=== PATIENT | male | born 1935 | race Caucasian/White ===

== ENCOUNTER 2016-06-12 09:18 | Outpatient (CLI) | payer MEDICARE, BC | END 2016-06-12 09:19 | disposition home or self-care (01) | DX: C61 Malignant neoplasm of prostate (principal); Z92.3 Personal history of irradiation; N41.1 Chronic prostatitis; R39.15 Urgency of urination ==

== ENCOUNTER 2017-02-24 10:19 | Outpatient (CLI) | payer MEDICARE, BC ==
--- NOTE | 2017-02-24 11:25 | XRAY Report ---
TWO VIEW CHEST: 02/24/2017 CLINICAL INDICATION: Cough. COMPARISON: 10/22/2014. FINDINGS: Frontal and lateral views of the chest demonstrate a normal cardiac silhouette. Ectasia of the thoracic aorta is stable. No focal consolidation, effusion, or pneumothorax is present. The lung s are hyperinflated, suggestive of COPD. IMPRESSION: HYPERINFLATION, BUT NO EVIDENCE OF ACUTE CARDIOPULMONARY DISEASE. JOB #: [id number] EXT JOB #:[id number]
== END 2017-02-24 10:20 | disposition home or self-care (01) ==
LOC: DI 10:19
PROVIDERS: ATTEND Internal Medicine
DX: R05 Cough (principal)
CPT/HCPCS: 71020

== ENCOUNTER 2017-10-13 16:24 | Outpatient (CLI) | payer MEDICARE, BC ==
--- NOTE | 2017-10-14 22:02 | XRAY Report ---
EXAM: RIGHT HIP AND PELVIS RADIOGRAPHY EXAM DATE: 10/13/2017 04:40 PM. HISTORY: Right hip pain. COMPARISONS: None. TECHNIQUE: 1 view of the pelvis and 1 view of the hip. FINDINGS: Bones: Normal. No fracture or bone lesion. Joints: Left and right hip joint spaces are narrowed. 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 Soft Tissues: Prostate seed implants. IMPRESSION: 1. Left and right hip joint spaces are symmetrically narrowed with marginal arthrosis. [facility] Referring Provider Line: [phone] SITE ID: [id number]
== END 2017-10-13 16:25 | disposition home or self-care (01) ==
LOC: DI 16:24
PROVIDERS: ATTEND Internal Medicine
DX: M25.551 Pain in right hip (principal)

== ENCOUNTER 2017-11-30 08:47 | Day surgery (SDC) | payer MEDICARE, BC ==
[~2017-11-30 08:47] MED LIST: BRIMONIDINE 0.2% OPHTH DROPS 5 ML ONE; BSS/LIDOCAINE/EPINEPHRINE 1 ML SYRINGE ONE; CYCLOPENTOLATE 1% OPHTH DROPS 2 ML ONE; EPINEPHrine 1 MG/ML AMP ONE; KETOROLAC 0.45% OPHTH DROPS ONE; PHENYLEPHRINE 2.5% OPHTH 2 ML DROPS ONE; PROPARACAINE 0.5% OPHTH DROPS 15 ML ONE; TIMOLOL 0.5% OPHTH DROPS ONE; TRIAMCIN/MOXIFLOX OPHTHALMIC 0.6 ML VIAL IO ONE; VANCOMYCIN OPHTHALMI 8MG/0.8ML 8 MG/0.8 ML SYRINGE IO ONE
[2017-11-30] MEDS ORDERED: PROPARACAINE 0.5% OPHTH DROPS 15 ML LEFTEYE ONE ×2 (09:35→10:17)
[2017-11-30] MEDS ORDERED: LACTATED RINGERS 500 ML IV ONE ×2 (09:35→10:34)
[2017-11-30] MEDS ORDERED: KETOROLAC 0.45% OPHTH DROPS LEFTEYE ONE (09:35)
[2017-11-30] MEDS ORDERED: CYCLOPENTOLATE 1% OPHTH DROPS 2 ML LEFTEYE ONE (09:35)
[2017-11-30] MEDS ORDERED: PHENYLEPHRINE 2.5% OPHTH 2 ML DROPS LEFTEYE ONE (09:35)
[2017-11-30] MEDS ORDERED: TRIAMCIN/MOXIFLOX/VANCO 1 ML VIAL IO ONE (10:17)
[2017-11-30] MEDS ORDERED: BSS/LIDOCAINE/EPINEPHRINE 1 ML SYRINGE IO ONE (10:17)
[2017-11-30] MEDS ORDERED: BRIMONIDINE 0.2% OPHTH DROPS 5 ML OPTH ONE (10:17)
[2017-11-30] MEDS ORDERED: TIMOLOL 0.5% OPHTH DROPS OPTH ONE (10:17)
[2017-11-30] MEDS ORDERED: EPINEPHrine 1 MG/ML AMP IVP ONE (10:17)
[2017-11-30] MEDS ORDERED: CHONDR SULF/HYALURONATE SYRINGE IO ONE (10:17)
[2017-11-30] MEDS ORDERED: MIDAZOLAM 2 MG/2 ML VIAL IVP ONE (10:30)
[2017-11-30 11:08] VITALS: BP 144/82
--- NOTE | 2017-11-30 12:08 | OPERATIVE REPORT ---
DATE OF SERVICE: 11/30/2017 Physician: Demetris Bermeo MD PREOPERATIVE DIAGNOSIS: Visually significant cataract, left eye. This was his first cataract surgery. POSTOPERATIVE DIAGNOSIS: Visually significant cataract, left eye. This was his first cataract surgery. NAME OF PROCEDURE: Phacoemulsification with posterior chamber intraocular lens implant, left eye. SURGEON: Demetris Bermeo MD ANESTHESIA: Monitored anesthesia care. COMPLICATIONS: None. OPERATIVE INDICATIONS: This is an 82-year-old man with progressive vision loss in the left eye due to 2+ nuclear sclerotic vacuolar, 1+ posterior subcapsular cataract. Best corrected visual acuity was 20/70, with glare to 20/100, in the left eye. Indications for surgery are overall decrease in vision, difficulty seeing words on a computer screen, difficulty reading, difficulty seeing words, closed caption or game scores on TV, difficulty driving in low light or at night, difficulty driving at night because of head lights from other vehicles, and difficulty with glare or bright lights in any situation. He was consented at length concerning risks and benefits of cataract surgery. Afterwards he expressed a desire to proceed with surgery. OPERATIVE PROCEDURE: The patient was taken to OR #3 and placed under monitored anesthesia care. A surgical timeout was conducted confirming correct patient, correct procedure, and correct surgical site. He was given topical anesthesia, and prepped and draped in usual sterile fashion. The eye was entered at the 6 and 3 o'clock positions. Intracameral Shugarcaine was injected into the anterior chamber, followed by Viscoat. A continuous-tear curvilinear capsulorrhexis was performed. The nucleus was hydrodissected and phacoemulsified. The cortex was evacuated using automated infusion and aspiration. Provisc was injected in the capsular bag, and a 15.5 diopter intraocular lens was inserted in the bag. Approximately 0.9 mL of a mixture of triamcinolone, moxifloxacin and vancomycin was injected subconjunctivally in the superior quadrant for infection and inflammation prophylaxis. I and A was used to evacuate the viscoelastic material. The eye was inflated to physiologic pressure using a balanced salt solution, and found to be watertight. The patient was taken from the operating room in good condition, given postop instructions TD: 11/30/2017 10:41
== END 2017-11-30 08:48 | disposition home or self-care (01) ==
LOC: SDS 08:47
PROVIDERS: ATTEND Ophthalmology
PROC: 08RK3JZ Replacement of Left Lens with Synthetic Substitute, Percutaneous Approach (ICD-10-PCS; principal; 2017-11-30 10:00)
DX: H25.812 Combined forms of age-related cataract, left eye (principal); I10 Essential (primary) hypertension; G47.33 Obstructive sleep apnea (adult) (pediatric); Z79.82 Long term (current) use of aspirin
CPT/HCPCS: 66984; A9270; V2632

== ENCOUNTER 2017-12-26 13:06 | Emergency (ER) | payer MEDICARE, BC ==
--- NOTE | 2017-12-26 15:20 | ED Physician Documentation ---
PD HPI ALTERED MENTAL STATUS - Stated complaint Stated Complaint: HIGH BP - Chief complaint Chief Complaint: Cardiac - History obtained from History obtained from: Patient - History of Present Illness Timing - onset: How many days ago (several days to a week of having intermittent lightheaded feeling. Noted his BP was elevated on several readings , in 150-170 range. Had been on Norvasc up until 3 months ago and was to cut in half due to BP doing so well, but he just stopped it. Was doing okay. Now with current symptoms. He says he does not feel lightheaded all the time, just for minutes at a time. No vertigo and is not positional.) Timing - duration: Days Timing - details: Intermittant Quality / character: Other (lightheaded and feels slightly foggy thinking for few minutes at a time. No focal weakness.) Associated symptoms: No: Fever, Headache, Dyspnea, Cough Contributing factors: Recent med change (stopped BP med 3 months ago in collaboration with PMD (was to cut it in half but stopped it instead).). No: Anticoagulated, Diabetic, New medication, Recent illness Basline status: Alert and oriented X 3, Ambulatory Similar symptoms before: Has not had sx before Recently seen: Not recently seen Review of Systems Constitutional: denies: Fever Nose: denies: Rhinorrhea / runny nose, Congestion Throat: denies: Sore throat Cardiac: denies: Chest pain / pressure, Palpitations, Pedal edema, Calf pain Respiratory: denies: Dyspnea, Cough, Wheezing GI: denies: Abdominal Pain, Nausea, Vomiting : denies: Dysuria Musculoskeletal: denies: Neck pain, Back pain Neurologic: reports: Near syncope (lightheaded but not to point of feeling faint.). denies: Focal weakness, Numbness, Syncope, Headache, Head injury PD PAST MEDICAL HISTORY - Past Medical History Cardiovascular: Hypertension, Coronary artery disease, Arrhythmia Respiratory: Sleep apnea, Other Endocrine/Autoimmune: None GI: GERD, Hepatitis : Incontinence HEENT: Chronic vision loss, Chronic hearing loss, Other Psych: Depression Musculoskeletal: None Derm: Herpes zoster, Other - Past Surgical History Past Surgical History: Yes General: Colonoscopy Neuro: DIRECTOR OF MARKETING OPERATIONS shunt HEENT: Tonsil/Adenoidectomy - Present Medications Home Medications: Ambulatory Orders Medication Instructions Recorded Confirmed Sertraline [Zoloft] 50 mg PO DAILY 07/05/13 11/30/17 Aspirin EC [Ecotrin] 325 mg PO DAILY 11/30/17 11/30/17 Cyanocobalamin (Vitamin B-12) 500 mcg PO DAILY 11/30/17 11/30/17 [Vitamin B-12] Desvenlafaxine Succinate [Pristiq 25 mg PO DAILY 11/30/17 11/30/17 ER] Folic Acid 0.8 mg PO DAILY 11/30/17 11/30/17 Ibuprofen [Ibu] 600 mg PO DAILY 11/30/17 11/30/17 Multivitamin/Iron/Folic Acid 1 each PO DAILY 11/30/17 11/30/17 [Centrum Adults Tablet] amLODIPine [Norvasc] 5 mg PO DAILY 11/30/17 11/30/17 Amlodipine Besylate 5 mg PO DAILY #30 tablet 12/26/17 - Allergies Allergies/Adverse Reactions: Allergies Allergy/AdvReac Type Severity Reaction Status Date / Time venom-honey bee Allergy Severe Respiratory Verified 12/26/17 15:43 [bee venom (honey bee)] and swelling iodine Allergy Intermediate Hives Verified 12/26/17 15:43 ciprofloxacin [From Cipro] Allergy Mild Rash Verified 12/26/17 15:43 ciprofloxacin HCl * Allergy Mild Rash Verified 12/26/17 15:43 [From Cipro] DYLON Inhibitors Allergy cough Verified 12/26/17 15:43 Sulfa (Sulfonamide AdvReac Mild Nausea Verified 12/26/17 15:43 Antibiotics) yellow jackets Allergy Anaphylaxis Uncoded 11/30/17 09:40 - Social History Does the pt smoke?: No Smoking Status: Never smoker Does the pt drink ETOH?: No Does the pt have substance abuse?: No - Immunizations Immunizations are current?: Yes Immunizations: TDAP >10years/unknown - POLST Patient has POLST: No PD ED PE NORMAL - Vitals Vital signs reviewed: Yes - General General: Alert and oriented X 3, No acute distress, Well developed/nourished - HEENT HEENT: Pharynx benign - Neck Neck: Supple, no meningeal sign, No adenopathy, No JVD - Cardiac Cardiac: RRR (mild bradycardia), No murmur - Respiratory Respiratory: Clear bilaterally - Abdomen Abdomen: Normal bowel sounds, Soft, Non tender, Non distended - Back Back: No CVA TTP - Derm Derm: Normal color, Warm and dry - Extremities Extremities: No deformity, No tenderness to palpate, No edema, No calf tenderness / cord - Neuro Neuro: Alert and oriented X 3, No motor deficit, Normal speech Results - Vitals Vitals: Vital Signs - 24 hr 12/26/17 12/26/17 13:17 15:15 Temperature 36.4 C L Heart Rate 48 L Respiratory 18 Rate Blood Pressure 156/84 H Blood Pressure 153/101 H [Left] Blood Pressure 154/119 H [Right] O2 Saturation 100 Oxygen O2 Source Room air - EKG (time done) 14:00 Rate: Rate (enter#) (50) Rhythm: Sinus bradycardia [place]: Normal Intervals: Normal IN QRS: Normal Ischemia: Normal ST segments. No: ST elevation c/w ischemia, ST depression - Labs Labs: Laboratory Tests 12/26/17 12/26/17 12/26/17 15:30 15:30 15:30 WBC 7.2 RBC 4.70 Hgb 15.4 Hct 46.6 MCV 99.1 H MCH 32.9 H MCHC 33.2 RDW 14.1 Plt Count 175 MPV 10.0 Neut # (Auto) 4.1 Lymph # (Auto) 2.4 [place] # (Auto) 0.5 Eos # (Auto) 0.1 Baso # (Auto) 0.0 Absolute Nucleated RBC 0.01 Nucleated RBC % 0.1 Sodium 141 Potassium 4.0 Chloride 108 Carbon Dioxide 26 Anion Gap 7.0 BUN 21 H Creatinine 0.9 Estimated GFR (MDRD) 81 L Glucose 94 Calcium 8.9 Magnesium 2.2 Total Bilirubin 1.0 AST 34 ALT 23 Alkaline Phosphatase 84 B-Natriuretic Peptide 90 Total Protein 7.2 Albumin 4.1 Globulin 3.1 Albumin/Globulin Ratio 1.3 Lipase 33 PD MEDICAL DECISION MAKING - ED course Complexity details: reviewed results, considered differential (intermittent lightheaded episodes and had prior history of atrial flutter post op remotely. Consider Holter to ensure not intermittent dysrhythmia currently. BP elevated but not too high. Can just resume prior BP med (had been off it 3 months since BP was so good). ), d/w patient, d/w PMD (Dr. Pierson - to resume Norvasc 5 mg daily and she will arrange Holter. ) - Sepsis Event Vital Signs: Vital Signs - 24 hr 12/26/17 12/26/17 13:17 15:15 Temperature 36.4 C L Heart Rate 48 L Respiratory 18 Rate Blood Pressure 156/84 H Blood Pressure 153/101 H [Left] Blood Pressure 154/119 H [Right] O2 Saturation 100 Oxygen O2 Source Room air Departure - Departure Disposition: 01 Home, Self Care Clinical Impression: Light-headed feeling Hypertension Qualifiers: Hypertension type: unspecified Qualified Code(s): I10 - Essential (primary) hypertension Record reviewed to determine appropriate education?: Yes Instructions: ED HTN Established Follow-Up: Nicolasa Pierson MD [Primary Care Provider] - Prescriptions: Amlodipine Besylate 5 mg PO DAILY #30 tablet Comments: Continue usual medications. Resume the [facility]. Follow-up with Dr. Pierson. Discharge Date/Time: 12/26/17 17:30
[2017-12-26 15:55] VITALS: BP 154/119
[2017-12-26 16:01] LABS: BASOPHILS % (AUTO) 0.5 %; EOSINOPHILS # (AUTO) 0.1 10^3/uL (0.0-0.7); HGB - HEMOGLOBIN 15.4 g/dL (14.0-18.0); LYMPHOCYTES # (AUTO) 2.4 10^3/uL (1.5-3.5); LYMPHOCYTES % (AUTO) 33.4 %; MEAN CORPUSCULAR HEMOGLOBIN 32.9 pg (27.0-31.0); MEAN CORPUSCULAR HGB CONC 33.2 g/dL (32.0-36.0); MEAN CORPUSCULAR VOLUME 99.1 fL (80.0-94.0); MONOCYTES # (AUTO) 0.5 10^3/uL (0.0-1.0); MONOCYTES % (AUTO) 7.5 %; NEUTROPHILS # (AUTO) 4.1 10^3/uL (1.5-6.6); NEUTROPHILS % (AUTO) 56.6 %; PLT - PLATELET COUNT 175 10^3/uL (130-450); RED CELL DISTRIBUTION WIDTH 14.1 % (12.0-15.0); WHITE BLOOD COUNT 7.2 x10^3/uL (4.8-10.8)
[2017-12-26 16:13] LABS: ALBUMIN 4.1 g/dL (3.2-5.5); ALBUMIN/GLOBULIN RATIO 1.3 (1.0-2.2); CALCIUM 8.9 mg/dL (8.5-10.3); CREATININE 0.9 mg/dL (0.6-1.2); MAGNESIUM 2.2 mg/dL (1.7-2.8); TOTAL PROTEIN 7.2 g/dL (6.7-8.2)
[2017-12-26] MEDS ORDERED: amLODIPine 5 MG TABLET PO STA (16:52)
== END 2017-12-26 17:30 | disposition home or self-care (01) ==
LOC: ED 13:06
DX: R42 Dizziness and giddiness (principal); I10 Essential (primary) hypertension; R00.1 Bradycardia, unspecified; R94.31 Abnormal electrocardiogram [ECG] [EKG]; I25.10 Atherosclerotic heart disease of native coronary artery without angina pectoris; Z79.82 Long term (current) use of aspirin; Z98.2 Presence of cerebrospinal fluid drainage device
CPT/HCPCS: 36415; 80053; 83690; 83735; 83880; 85025; 93005; 99283; A9270

== ENCOUNTER 2018-03-08 07:23 | Day surgery (SDC) | payer MEDICARE, BC ==
[~2018-03-08 07:23] MED LIST changes: -CYCLOPENTOLATE 1% OPHTH DROPS 2 ML ONE; -KETOROLAC 0.45% OPHTH DROPS ONE; -PHENYLEPHRINE 2.5% OPHTH 2 ML DROPS ONE; -PROPARACAINE 0.5% OPHTH DROPS 15 ML ONE
[2018-03-08] MEDS ORDERED: LACTATED RINGERS 500 ML IV ONE (07:33)
[2018-03-08] MEDS ORDERED: KETOROLAC 0.45% OPHTH DROPS ONE (07:33)
[2018-03-08] MEDS ORDERED: PHENYLEPHRINE 2.5% OPHTH 2 ML DROPS ONE (07:33)
[2018-03-08] MEDS ORDERED: CYCLOPENTOLATE 1% OPHTH DROPS 2 ML ONE (07:33)
[2018-03-08] MEDS ORDERED: PROPARACAINE 0.5% OPHTH DROPS 15 ML ONE (07:33)
[2018-03-08] MEDS ORDERED: PHENYLEPHRINE 2.5% OPHTH 2 ML DROPS RIGHTEYE ONE (07:50)
[2018-03-08] MEDS ORDERED: CYCLOPENTOLATE 1% OPHTH DROPS 2 ML RIGHTEYE ONE (07:50)
[2018-03-08] MEDS ORDERED: KETOROLAC 0.45% OPHTH DROPS RIGHTEYE ONE (07:50)
[2018-03-08] MEDS ORDERED: PROPARACAINE 0.5% OPHTH DROPS 15 ML RIGHTEYE ONE (07:50)
--- NOTE | 2018-03-08 08:19 | ANESTHESIA ---
Pre-Anesthesia VS, & Labs - Diagnosis Right eye senile cataract - Procedure Right eye extraction of cataract with IOL Vital Signs: Temp Pulse Resp BP Pulse Ox 36.6 C 58 L 18 141/86 H 95 03/08/18 07:39 03/08/18 07:39 03/08/18 07:39 03/08/18 07:39 03/08/18 07:39 Height 5 ft 10 in Weight (kg) 86 kg Body Mass Index 28.7 - NPO >8 hours Home Medications and Allergies Home Medications: Ambulatory Orders Medication Instructions Recorded Confirmed Aspirin EC [Ecotrin] 325 mg PO DAILY 11/30/17 03/08/18 Desvenlafaxine Succinate [Pristiq 25 mg PO DAILY 11/30/17 03/08/18 ER] Ibuprofen [Ibu] 600 mg PO DAILY 11/30/17 03/08/18 Multivitamin/Iron/Folic Acid 1 each PO DAILY 11/30/17 11/30/17 [Centrum Adults Tablet] amLODIPine [Norvasc] 5 mg PO DAILY 11/30/17 03/08/18 Amlodipine Besylate 5 mg PO DAILY #30 tablet 12/26/17 03/08/18 Cyanocobalamin (Vitamin B-12) 1,000 mcg PO DAILY 03/07/18 03/08/18 [Vitamin B-12] Aspirin EC [Ecotrin] 325 mg PO DAILY 11/30/17 Desvenlafaxine Succinate [Pristiq ER] 25 mg PO DAILY 11/30/17 Ibuprofen [Ibu] 600 mg PO DAILY 11/30/17 Multivitamin/Iron/Folic Acid [Centrum Adults Tablet] 1 each PO DAILY 11/30/17 amLODIPine [Norvasc] 5 mg PO DAILY 11/30/17 Cyanocobalamin (Vitamin B-12) [Vitamin B-12] 1,000 mcg PO DAILY 03/07/18 Allergies/Adverse Reactions: Allergies Allergy/AdvReac Type Severity Reaction Status Date / Time venom-honey bee Allergy Severe Respiratory Verified 12/26/17 15:43 [bee venom (honey bee)] and swelling iodine Allergy Intermediate Hives Verified 12/26/17 15:43 ciprofloxacin [From Cipro] Allergy Mild Rash Verified 12/26/17 15:43 ciprofloxacin HCl * Allergy Mild Rash Verified 12/26/17 15:43 [From Cipro] DYLON Inhibitors Allergy cough Verified 12/26/17 15:43 Sulfa (Sulfonamide AdvReac Mild Nausea Verified 12/26/17 15:43 Antibiotics) yellow jackets Allergy Anaphylaxis Uncoded 11/30/17 09:40 Anes History & Medical History - Anesthetic History Anesthesia Complications: reports: No previous complications Family history of Anesthesia Complications: Denies Family history of Malignant Hyperthermia: Denies - Medical History Cardiovascular: reports: Hypertension, Arrhythmia Pulmonary: reports: Sleep apnea (does not use cpap) Gastrointestinal: reports: GERD (controlled with diet.) Urinary: reports: Incontinence Neuro: reports: None Musculoskeletal: reports: None Endocrine/Autoimmune: reports: None Skin: reports: Herpes zoster, Other Smoking Status: Never smoker Psychosocial: reports: Depression - Surgical History General: Colonoscopy Eyes Ears Nose Throat (EENT): Cataracts, Tonsil/Adenoidectomy Urologic: Prostatic surgery Neurologic: PASTE UP COPY CAMERA OPERATOR shunt Exam General: Alert, Oriented x3, Cooperative, No acute distress Dental: Dentures full Upper, Other (missing teeth) Mouth Openin Fingerbreadth Neck Mobility: Normal Mallampati classification: II Thyromental Distance: 4-6 cm Respiratory: Lungs clear, Normal breath sounds, No respiratory distress, No accessory muscle use Cardiovascular: Regular rate, Normal S1, Normal S2, No murmurs Mental/Cognitive Status: Alert/Oriented X3, Normal for patient Cognitive Status: Within normal limits Plan Anesthesia Type: MAC Consent for Procedure(s) Verified and Reviewed: Yes Code Status: Attempt Resuscitation ASA classification: 3-Severe systemic disease Is this case an emergency?: No
[2018-03-08] MEDS ORDERED: MIDAZOLAM 2 MG/2 ML VIAL IVP ONE (08:38)
[2018-03-08] MEDS ORDERED: CHONDR SULF/HYALURONATE SYRINGE IO ONE (08:42)
[2018-03-08] MEDS ORDERED: EPINEPHrine 1 MG/ML AMP IVP ONE (08:42)
[2018-03-08] MEDS ORDERED: BRIMONIDINE 0.2% OPHTH DROPS 5 ML OPTH ONE (08:42)
[2018-03-08] MEDS ORDERED: BSS/LIDOCAINE/EPINEPHRINE 1 ML SYRINGE IO ONE (08:43)
[2018-03-08] MEDS ORDERED: TRIAMCIN/MOXIFLOX/VANCO 1 ML VIAL IO ONE (08:43)
[2018-03-08] MEDS ORDERED: TIMOLOL 0.5% OPHTH DROPS OPTH ONE (08:43)
[2018-03-08 09:44] VITALS: BP 138/63
--- NOTE | 2018-03-08 10:35 | OPERATIVE REPORT ---
DATE OF SERVICE: 03/08/2018 Physician: Demetris Bermeo MD PREOPERATIVE DIAGNOSIS: Visually significant cataract, right eye. Cataract surgery was performed on the left eye on 11/30/2017. POSTOPERATIVE DIAGNOSIS: Visually significant cataract, right eye. Cataract surgery was performed o n the left eye on 11/30/2017. PROCEDURE: Phacoemulsification with posterior chamber intraocular lens implant, right eye. SURGEON: Demetris Bermeo MD ANESTHESIA: Monitored anesthesia care. COMPLICATIONS: None. OPERATIVE INDICATIONS: This is an 82-year-old man with progressive vision loss in the right eye due to 2+ nuclear sclerotic, 1-2+ posterior subcapsular and vacuole cataract. Best corrected visual acui ty was 20/40, with glare to 20/80 in the right eye. Indications for surgery were difficulty seeing w ords on a computer screen, difficulty reading; difficulty seeing words, closed captions or game score s on TV, difficulty seeing street signs, difficulty driving at night because of headlights from other vehicles, and/or street lights, and difficulty with glare or bright lights in any situation. He was consented at length concerning risks and benefits of cataract surgery, after which he expressed a de sire to proceed with surgery. OPERATIVE PROCEDURE: The patient was taken to OR #3 and placed under monitored anesthesia care. Yesenia gical timeout was conducted confirming correct patient, correct procedure, and correct surgical site. He was given topical anesthesia, and then prepped and draped in the usual sterile fashion. The eye was entered at the 12 and 9 o'clock positions. Intracameral Shugarcaine was injected into the anter ior chamber, followed by Viscoat. A continuous-tear curvilinear capsulorrhexis was performed. The n ucleus was hydrodissected and phacoemulsified. The cortex was evacuated using automated infusion and aspiration. Provisc was injected in the capsular bag, and a 16.5 diopter intraocular lens inserted in the bag. Approximately 0.8 mL of a mixture of triamcinolone, moxifloxacin, and vancomycin was inj ected subconjunctivally in the superior quadrant for infection and inflammation prophylaxis. I and A was used to evacuate the viscoelastic materials. The eye was inflated to physiologic pressure using balanced salt solution, and found to be watertight. The patient was taken from the operating room i n good condition and given postoperative instructions. TD: 03/08/2018 09:04
== END 2018-03-08 07:24 | disposition home or self-care (01) ==
LOC: SDS 07:23
PROVIDERS: ATTEND Ophthalmology
PROC: 08RJ3JZ Replacement of Right Lens with Synthetic Substitute, Percutaneous Approach (ICD-10-PCS; principal; 2018-03-08 08:30)
DX: H25.811 Combined forms of age-related cataract, right eye (principal); I10 Essential (primary) hypertension; Z87.891 Personal history of nicotine dependence; F32.9 Major depressive disorder, single episode, unspecified
CPT/HCPCS: 66984; A9270; J3490; V2632

== ENCOUNTER 2018-06-14 10:39 | Outpatient (CLI) | payer MEDICARE, BC | END 2018-06-14 10:40 | disposition home or self-care (01) | LOC: LAB 10:39 | PROVIDERS: ATTEND Urology | DX: Z85.46 Personal history of malignant neoplasm of prostate (principal) | CPT/HCPCS: 36415; 84153 ==

== ENCOUNTER 2018-10-16 14:56 | Outpatient (CLI) | payer MEDICARE, BC ==
--- NOTE | 2018-10-17 14:52 | Ultrasound Report ---
Reason: NON HEALING ULCER L TOE Procedure Date: 10/17/2018 Accession Number: [id number] / [id number] Procedure: US - Duplex Lwr Ext Arterial Bilat CPT Code: FULL RESULT: EXAM: BILATERAL LOWER EXTREMITY ARTERIAL DOPPLER ULTRASOUND EXAM DATE: 10/16/2018 03:17 PM. CLINICAL HISTORY: Non-healing ulcer left toe. COMPARISON: None. TECHNIQUE: Real-time sonographic vascular imaging was performed by the instructor of spanish, utilizing color-flow, Doppler flow, and spectral analysis. Multiple customer relations representative static images were saved for review. FINDINGS: Spectral and color Doppler of the common femoral artery, deep femoral artery, superficial femoral artery, popliteal artery, anterior and posterior tibial arteries as well as the peroneal artery and dorsalis pedis artery of the bilateral lower extremities was performed. Spectral tracings throughout all sampled arteries in both lower extremities demonstrate preserved brisk arterial upstrokes and triphasic or biphasic waveforms. There is mild elevation of the right distal SFA peak systolic velocity suggesting focal disease at the level of the canal without downstream tardus parvus waveform to suggest significant hemodynamic effect. RIGHT LOWER EXTREMITY: FAST FOOD ASSISTANT RESTAURANT MANAGER: PSV 49 cm/sec. PSFA: PSV 115 cm/sec. MSFA: PSV 90 cm/sec. DSFA: PSV 145 cm/sec. PFA: PSV 56 cm/sec. POP: PSV 35 cm/sec. LARS: PSV 84 cm/sec. FLAVOR MAKER: PSV 57 cm/sec. CHANDAN: PSV 66 cm/sec. DPA: PSV 132 cm/sec. LEFT LOWER EXTREMITY: FAST FOOD ASSISTANT RESTAURANT MANAGER: PSV 62 cm/sec. PSFA: PSV 90 cm/sec. MSFA: PSV 116 cm/sec. DSFA: PSV 105 cm/sec. PFA: PSV 111 cm/sec. POP: PSV 50 cm/sec. LARS: PSV 102 cm/sec. FLAVOR MAKER: PSV 64 cm/sec. CHANDAN: PSV 124 cm/sec. DPA: PSV 119 cm/sec. IMPRESSION: Patent bilateral lower extremity arteries with preserved brisk systolic upstrokes throughout both lower extremities. Potential focal stenosis at the distal right SFA. [facility]
== END 2018-10-16 14:57 | disposition home or self-care (01) ==
LOC: DI 14:56
PROVIDERS: ATTEND Internal Medicine
DX: L98.9 Disorder of the skin and subcutaneous tissue, unspecified (principal)
CPT/HCPCS: 93925

== ENCOUNTER 2019-06-10 12:31 | Outpatient (CLI) | payer MEDICARE, BC ==
--- NOTE | 2019-06-10 14:22 | CT Report ---
Reason: IDIOPATHIC NORMAL PRESSURE HYDROCEPHALUS Procedure Date: 06/10/2019 Accession Number: [id number] / [id number] Procedure: CT - HEAD WO CPT Code: Final Report FULL RESULT: EXAM: CT HEAD EXAM DATE: 06/10/2019 12:22 PM. CLINICAL HISTORY: Idiopathic normal pressure hydrocephalus. COMPARISON: HEAD W/O 12/30/2014 11:06 AM. TECHNIQUE: Multiaxial CT images were obtained from the foramen magnum to the vertex. Reformats: Sagittal and coronal. IV contrast: None. In accordance with CT protocol optimization, one or more of the following dose reduction techniques were utilized for this exam: automated exposure control, adjustment of mA and/or KV based on patient size, or use of iterative reconstructive technique. FINDINGS: Parenchyma: No intraparenchymal hemorrhage. No evidence of mass or midline shift. Russo-white differentiation is distinct. Diffuse chronic microangiopathic white matter changes are evident. Extraaxial Spaces: Normal for age. No subdural or epidural collections identified. Ventricles: There is again a right frontal OFFICE MACHINE SERVICER APPRENTICE shunt catheter with its tip in the right ventricular body, unremarkable. The mild ventriculomegaly of the bilateral lateral ventricles without ventricular hemorrhage again noted, similar to prior exam. Sinuses and orbits: Imaged paranasal sinuses, orbits, and mastoids show no significant abnormality. Bones: No evidence of fracture or calvarial defect. Other: Moderate amount of calcified foci in the anterior falx is again seen, degenerative calcification. IMPRESSION: Generalized age-related cortical atrophic changes without evidence of acute intracranial abnormality. Status post right frontal OFFICE MACHINE SERVICER APPRENTICE shunt catheter placement with mild ventriculomegaly of the bilateral lateral ventricles, no significant interval changes. [facility]
== END 2019-06-10 12:32 | disposition home or self-care (01) ==
LOC: DI 12:31
PROVIDERS: ATTEND Internal Medicine
DX: G93.89 Other specified disorders of brain (principal); Z98.2 Presence of cerebrospinal fluid drainage device
CPT/HCPCS: 70450

== ENCOUNTER 2019-08-02 12:07 | Outpatient (CLI) | payer MEDICARE, BC ==
--- NOTE | 2019-08-02 13:15 | XRAY Report ---
Reason: COUGH Procedure Date: 08/02/2019 Accession Number: [id number] / [id number] Procedure: XR - Chest 2 View X-Ray CPT Code: 21978 Addended Final Report FULL RESULT: EXAM: CHEST RADIOGRAPHY EXAM DATE: 08/02/2019 12:40 PM. CLINICAL HISTORY: COUGH. COMPARISON: CHEST 2 VIEW PA/LAT 02/24/2017 10:23 AM. TECHNIQUE: 2 views. FINDINGS: Lungs/Pleura: There is an approximately 3 cm rounded density projecting at the medial left lung base on the PA view, not discretely correlated on the lateral view and may project anteriorly. The lungs elsewhere appear stable without acute consolidation. There is hyperinflation, as before. Mediastinum: Heart and mediastinal contours are unremarkable. Other: There is dilatation of the mid thoracic descending aorta to approximately 4 cm, suggesting a possible presence of a saccular aneurysm. 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 3 cm nodule suggested at the medial left lung base. These findings could be further evaluated by CT. No acute processes identified elsewhere. [facility] The call report notification system was initiated by Dr. Víctor Yoo at 01:16 PM on 08/02/2019. ADDENDUM: 08/02/19 13:47 The above call report findings were discussed with Dr Grant by Dr. Víctor Yoo at 01:47 PM on 08/02/2019.
== END 2019-08-02 12:08 | disposition home or self-care (01) ==
LOC: DI 12:07
PROVIDERS: ATTEND Internal Medicine
DX: I77.810 Thoracic aortic ectasia (principal); R05 Cough
CPT/HCPCS: 71046

== ENCOUNTER 2020-09-16 10:42 | Outpatient (CLI) | payer MEDICARE, BC ==
--- NOTE | 2020-09-16 12:09 | CT Report ---
PROCEDURE: CHEST WO INDICATIONS: PULMONARY NODULE TECHNIQUE: Noncontrast 5 mm thick sections acquired from the pulmonary apices to the posterior costophrenic angl es. 7 mm thick coronal and sagittal MIP reformats were then acquired. For radiation dose reduction, the following was used: automated exposure control, adjustment of mA and/or kV according to patient size. COMPARISON: Chest radiograph 08/02/2019 FINDINGS: Image quality: Excellent. Lungs and pleura: No acute air space opacities. Mild peripheral reticulations and traction bronchie ctasis are seen bilaterally that are most prominent at the left lung base. Honeycombing is seen. No s uspicious pulmonary nodule is identified. No pleural effusions or pneumothorax. Central and peripher al airways are patent and normal in caliber. Mediastinum: There is marked tortuosity of the thoracic aorta, which accounts for the previously see n left paraspinal densities on radiographs from 08/02/2019. No thoracic aortic aneurysm is seen. There are mild thoracic aortic atherosclerotic calcifications. Heart size is normal. No pericardial effus ion. Mild coronary artery atherosclerotic calcifications are present. No mediastinal adenopathy by s ize criteria. Central pulmonary arteries are normal in size. Esophagus is normal in caliber. Small hiatal hernia. Bones and chest wall: A ventriculoperitoneal shunt catheter is partially imaged in the right anterio r chest. No suspicious bony lesions. Multilevel degenerative changes are seen in the included spine with bridging osteophytes or syndesmophytes in the mid thoracic spine. Degenerative changes are seen at the sternoclavicular joints. No vertebral body compression fractures. No axillary or supraclavicu lar adenopathy by size criteria. The thyroid is normal in size. Abdomen: Numerous diverticula are seen in the included portions of the colon without signs of acute diverticulitis. Layering stones or sludge are seen in the dependent portion of the gallbladder withou t signs of cholecystitis. A diverticulum is partially imaged in the second portion of the duodenum. E xophytic renal cysts are seen bilaterally. Visualized upper abdominal solid organs and bowel loops ot herwise appear normal in the absence of contrast. IMPRESSION: 1. Tortuous thoracic aorta corresponds to the retrocardiac/left paravertebral density seen on prior radiographs from 08/02/2019. Mild thoracic aortic and vascular calcifications are seen without aortic aneurysm. 2. Mild peripheral reticulations and traction bronchiectasis are seen bilaterally that are most prom inent in the left lung base, suspicious for mild or early interstitial lung disease. Recommend correl ation with pulmonary function tests. 3. No suspicious pulmonary nodule identified. 4. Colonic diverticulosis. 5. Gallbladder calculi or sludge without signs of acute cholecystitis. Reviewed by: Ten Yarbrough MD on 09/16/2020 12:07 PM PDT Approved by: Ten Yarbrough MD on 09/16/2020 12:07 PM PDT Station ID: [id number]
== END 2020-09-16 10:43 | disposition home or self-care (01) ==
LOC: DI 10:42
PROVIDERS: ATTEND Internal Medicine
DX: R93.1 Abnormal findings on diagnostic imaging of heart and coronary circulation (principal); R91.8 Other nonspecific abnormal finding of lung field; K57.30 Diverticulosis of large intestine without perforation or abscess without bleeding; R93.2 Abnormal findings on diagnostic imaging of liver and biliary tract

== ENCOUNTER 2020-09-28 10:11 | Outpatient (CLI) | payer MEDICARE, BC ==
[2020-09-28] MEDS ORDERED: REGADENOSON 0.4 MG/5 ML SYRINGE IVP ONE ×2 (11:55→13:25)
[2020-09-28] MEDS ORDERED: AMINOPHYLLINE 500 MG/20 ML VIAL ONE (11:56)
--- NOTE | 2020-09-28 13:17 | CARDIAC PROCEDURE NOTE ---
DATE OF SERVICE: 09/28/2020 Physician: Nicolasa Pierson MD PROCEDURE: Lexiscan. SYMPTOMS: The patient had some shortness of breath during the procedure. ST SEGMENT RESPONSE: There were no ST-segment elevations or depressions. There were T-wave inversions V4 through V6 at baseline, which remained unchanged. ARRHYTHMIAS: There were occasional premature ventricular contractions. HEART RATE RESPONSE: 53 at baseline to maximum 72. BLOOD PRESSURE RESPONSE: 132/100 at baseline, which reached a low of 124/85 and a high of 157/93 during the test. IMPRESSION: No chest pain. No significant EKG changes. CONCLUSION: Await imaging portion of study. TD: 09/28/2020 13:16 ANA
--- NOTE | 2020-09-28 15:52 | Nuclear Medicine Report ---
PROCEDURE: Rest and pharmacological stress myocardial perfusion SPECT with gated imaging and ejection fraction INDICATIONS: CHEST PAIN/LEXISCAN RADIOPHARMACEUTICAL: 13.01 mCi Tc-99m tetrafosmin IV at rest and 42.18 mCi Tc-99m tetrafosmin IV at peak effect of pharmacological stress. A [id number] was performed. TECHNIQUE: Radiopharmaceutical was injected at peak stress test, and also at rest. SPECT images wer e obtained. SPECT myocardial perfusion images were displayed in short axis, horizontal long axis, an d vertical long axis views. Gated images were reviewed using Auto[employer] software. COMPARISON: None available. CARDIAC STRESS: A pharmacologic stress test was performed under the supervision of an attending staff, using an infus ion of Lexiscan. Hemodynamic data: There is normal blood pressure and heart rate response to pharmacologic stress. Symptoms: The patient denied anginal chest pain. Aminophylline: None EKG: No diagnostic changes of ischemia; no ectopy. FINDINGS: Raw data: There is good myocardial uptake of radiotracer. No significant motion artifacts. Lung-to -heart ratio is (normal is less than 0.38 for tetrafosmin tracer). Left ventricle function: Gated images demonstrate normal left ventricular wall thickening. No segme ntal wall motion abnormalities. No transient ischemic dilation; TID is 0.89 (normal less than 1.3). Left ventricle resting end diastolic volume is 126 mL. Left ventricle stress ejection fraction is 62%; normal range is above 45%. Myocardial perfusion: There is normal distribution of activity in the right and left ventricular pranav cardium. Poststress perfusion images demonstrate a small area of moderately intense decreased perfusi on in the distal anterior wall which demonstrates near-complete normalization in the prone position. Rest phase images demonstrate no perfusion defects. IMPRESSION: 1. Probably normal myocardial perfusion study. Apparent small reversible perfusion defect in the dist al anterior wall demonstrates near complete normalization in the prone position and may represent a s oft tissue attenuation artifact. 2. No fixed cardiac perfusion defects that would suggest prior infarction. 3. Normal left ventricular function with no segmental wall motion abnormalities and normal stress LVE F of 62%. 3. Normal hemodynamic response to pharmacologic stress. PQRS ATTESTATIONS: Measure 322 - Is this imaging test primarily performed on a low-risk surgery patient for preoperative evaluation within 30 days preceding their low-risk non-cardiac surgery? Low-risk surgery is defined as cardiac or myocardial infarction less than 1%, including (but not limited to) endoscopic pr ocedures, superficial procedures, cataract surgery, and excisional breast surgery: Answer: No Measure 323 - Is this imaging test performed primarily for the monitoring of an asymptomatic patient who had percutaneous coronary intervention on the visit date or within 2 years of the visit date? An swer: No Measure 324 - Is this imaging test performed primarily for the initial detection and risk assessment on an asymptomatic, low coronary heart disease patient? Low CHD risk definition = clinicians should consider the maximum number of available patient factors used to estimate risk based on [place] (A TP III criteria), typically age, gender, diabetes, smoking status, and use of blood pressure medicati on, and integrate age appropriate estimates for missing elements, such as LDL or standard blood press ure. Answer: No Reviewed by: Prerna Velasquez MD, PhD on 09/28/2020 3:51 PM PDT Approved by: Prerna Velasquez MD, PhD on 09/28/2020 3:51 PM PDT Station ID: [id number]
== END 2020-09-28 10:12 | disposition home or self-care (01) ==
LOC: DI 10:11
PROVIDERS: ATTEND Internal Medicine
DX: R07.9 Chest pain, unspecified (principal); R06.09 Other forms of dyspnea
CPT/HCPCS: 78452; 93017; A9500; J2785

== ENCOUNTER 2020-10-08 16:08 | Outpatient (CLI) | payer MEDICARE, BC ==
--- NOTE | 2020-10-09 09:46 | XRAY Report ---
PROCEDURE: Hip w/Pelvis 2-3V RT INDICATIONS: RIGHT HIP PAIN TECHNIQUE: AP pelvis with lateral view(s) of the right hip(s). COMPARISON: 10/13/2017. FINDINGS: Bones: No acute fractures or dislocations. Pelvic ring appears intact. No suspicious bony lesions. Moderate degenerative changes of the bilateral hip joints with joint space loss and marginal osteop hyte formation. Moderate lower lumbar spondylosis. Soft tissues: The visualized bowel gas pattern is normal. No suspicious soft tissue calcifications. Prostate implant seeds are again noted. Bilateral pelvic calcifications are unchanged in appearance . IMPRESSION: Right hip without acute fracture or dislocation. Moderate bilateral hip degenerative change. Moderate lower lumbar spondylosis. Reviewed by: Olman Reeves MD on 10/09/2020 9:45 AM PDT Approved by: Olman Reeves MD on 10/09/2020 9:45 AM PDT Station ID: [id number]
== END 2020-10-08 16:09 | disposition home or self-care (01) ==
LOC: DI 16:08
PROVIDERS: ATTEND Orthopaedic Surgery
DX: M25.551 Pain in right hip (principal); M16.0 Bilateral primary osteoarthritis of hip; M47.816 Spondylosis without myelopathy or radiculopathy, lumbar region

== ENCOUNTER 2020-12-23 13:22 | Emergency (ER) | payer MEDICARE, BC ==
--- NOTE | 2020-12-23 13:43 | ED Physician Documentation ---
PD HPI LOWER EXT INJURY - Stated complaint Stated Complaint: GLF/BODY PX - Chief complaint Chief Complaint: Trauma Ext - History obtained from History obtained from: Patient - History of Present Illness PD HPI LOW EXT INJURY LOCATION: Right, Knee, Ankle Type of injury: Fall (while mowing with push mower yesterday. Fell yesterday, twisting ankle and fell onto knee.) Where injury occurred: Home Timing - onset: Yesterday Timing - details: Abrupt onset, Still present Worsened by: Moving Associated symptoms: Swelling. 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 HEENT: Cataracts, Tonsil/Adenoidectomy - Present Medications Home Medications: Ambulatory Orders Medication Instructions Recorded Confirmed Aspirin EC [Ecotrin] 325 mg PO DAILY 11/30/17 03/08/18 Desvenlafaxine Succinate [Pristiq 25 mg PO DAILY 11/30/17 03/08/18 ER] Ibuprofen [Ibu] 600 mg PO DAILY 11/30/17 03/08/18 Multivitamin/Iron/Folic Acid 1 each PO DAILY 11/30/17 11/30/17 [Centrum Adults Tablet] amLODIPine [Norvasc] 5 mg PO DAILY 11/30/17 03/08/18 Amlodipine Besylate 5 mg PO DAILY #30 tablet 12/26/17 03/08/18 Cyanocobalamin (Vitamin B-12) 1,000 mcg PO DAILY 03/07/18 03/08/18 [Vitamin B-12] Mupirocin Calcium [Mupirocin] 1 applic TP TID #15 gm 12/23/20 - Allergies Allergies/Adverse Reactions: Allergies Allergy/AdvReac Type Severity Reaction Status Date / Time venom-honey bee Allergy Severe Respiratory Verified 12/23/20 13:29 [bee venom (honey bee)] and swelling iodine Allergy Intermediate Hives Verified 12/23/20 13:29 ciprofloxacin [From Cipro] Allergy Mild Rash Verified 12/23/20 13:29 ciprofloxacin HCl * Allergy Mild Rash Verified 12/23/20 13:29 [From Cipro] DYLON Inhibitors Allergy cough Verified 12/23/20 13:29 Sulfa (Sulfonamide AdvReac Mild Nausea Verified 12/23/20 13:29 Antibiotics) yellow jackets Allergy Anaphylaxis Uncoded 12/23/20 13:29 - Social History Does the pt smoke?: No Smoking Status: Never smoker Does the pt drink ETOH?: No Does the pt have substance abuse?: No - Immunizations Immunizations are current?: Yes Immunizations: TDAP >10years/unknown - POLST Patient has POLST: No PD ED PE NORMAL - Vitals Vital signs reviewed: Yes - General General: Alert and oriented X 3, No acute distress, Well developed/nourished - HEENT HEENT: Atraumatic - Neck Neck: Supple, no meningeal sign, No bony TTP - Derm Derm: Normal color, Warm and dry - Extremities Extremities: Other (right knee with mild tender anteriorly. No laxity nor pain with stress testing. No effusion. Right ankle with swelling laterally and tender. No laxity with stress. Medial not tender. 2nd/3rd toes with prior abrasi ons with mild scabbing and red. ) - Neuro Neuro: No motor deficit, No sensory deficit Results - Vitals Vitals: Oxygen O2 Source Room air - Rads (name of study) right knee Radiology: Prelim report reviewed, See rad report (no fractures) right ankle Radiology: Prelim report reviewed (distal fibular nondisplaced fracture at mortis ankle. Mortis is normal appearing. ), See rad report PD MEDICAL DECISION MAKING - ED course Complexity details: considered differential (toe abrasions from recent injury with mild redness and crusting. No cellulitic changes per se. Current injury with fibular area tenderness and swelling. No medial tenderness. He does not appear someone to be able to use crutches. Will go with cast boot and cane/walker. Knee feels stable stressing. ), d/w patient Departure - Departure Disposition: 01 Home, Self Care Clinical Impression: Accidental fall Qualifiers: Encounter type: initial encounter Qualified Code(s): W19.XXXA - Unspecified fall, initial encounter Fracture of distal fibula Qualifiers: Encounter type: initial encounter Fracture type: closed Fracture morphology: unspecified fracture morphology Laterality: right Qualified Code(s): S82.831A - Other fracture of upper and lower end of right fibula, initial encounter for closed fracture Toe abrasion Qualifiers: Encounter type: initial encounter Laterality: right Qualified Code(s): S90.414A - Abrasion, right lesser toe(s), initial encounter Condition: Stable Record reviewed to determine appropriate education?: Yes Instructions: ED Fx Ankle Lateral Malleolus Follow-Up: Nicolasa Pierson MD [Primary Care Provider] - Jefry Rosas MD [Provider Admit Priv/Credential] - Prescriptions: Mupirocin Calcium [Mupirocin] 1 applic TP TID #15 gm Comments: Your knee x-ray appears without any fracture. Likely have some strain of the knee ligaments. Your ankle x-ray however shows a fracture of the end of the fibula which is the outer bone of the ankle. It is nondisplaced. It should be treatable with a walking cast boot and partial weightbearing and less activity. Use the crutches for balance and some of the pressure off of the ankle. It is okay to be putting weight onto it while it is supported with the cast boot. You may want to wear the cast boot regularly even when rested and sleeping for several days to week while the initial healing takes place. After that you would need to have it on mainly just with weightbearing for about a month. Its good to have this evaluated to ensure its healing in position. Follow-up with your primary care or more appropriately orthopedics in about 7-10 days for reevaluation. Call tomorrow for an appointment. Elevate ice and rest the ankle often to reduce swelling. Tylenol if needed for pains. For the toe abrasions, clean with soap and water once or twice daily and apply mupirocin ointment. Cover them with a Band-Aid to protect them during the days and have them uncovered part of the time. Recheck if not improved over the next week as well. Discharge Date/Time: 12/23/20 15:17
[2020-12-23] MEDS ORDERED: ACETAMINOPHEN 325 MG TABLET PO STA (14:03)
--- NOTE | 2020-12-23 14:10 | XRAY Report ---
PROCEDURE: Ankle 3 View RT INDICATIONS: Trauma TECHNIQUE: 3 views of the ankle were acquired. COMPARISON: None FINDINGS: Bones: Acute oblique fracture involving distal fibular shaft/lateral malleolus is seen with minimal d orsal and lateral displacement at fracture site. Ankle mortise is normally aligned. No suspicious merceeds ny lesions. Soft tissues: Ankle soft tissue swelling is seen. No tibiotalar joint effusion. Achilles tendon appe ars normal. IMPRESSION: Minimally displaced distal fibular shaft/lateral malleolus fracture as above. Intact ank le mortise. Reviewed by: Alfredo Collins MD on 12/23/2020 2:08 PM PDT Approved by: Alfredo Collins MD on 12/23/2020 2:08 PM PDT Station ID: [id number]
--- NOTE | 2020-12-23 14:49 | XRAY Report ---
PROCEDURE: Knee 4 View RT INDICATIONS: Trauma TECHNIQUE: 4 views of the right knee(s) were acquired. COMPARISON: None. FINDINGS: Bones: No fractures or dislocations. No suspicious bony lesions. At least moderate degenerative ar thritis with tricompartment osteophytes and medial compartment joint space loss. Soft tissues: Small joint effusion. No suspicious soft tissue calcifications. IMPRESSION: Degenerative arthritis, small effusion. No evidence acute bony abnormality of the right knee. If clinical suspicion and/or symptoms persist, further assessment with repeat plain films or advanced imaging (e.g., CT, MRI, or bone scan) may be helpful for further assessment. Reviewed by: Terry Wade MD on 12/23/2020 2:47 PM PDT Approved by: Terry Wade MD on 12/23/2020 2:47 PM PDT Station ID: [id number]
[2020-12-23 15:17] VITALS: BP 152/75
== END 2020-12-23 15:17 | disposition home or self-care (01) ==
LOC: ED 13:22
DX: S82.61XA Displaced fracture of lateral malleolus of right fibula, initial encounter for closed fracture (principal); X50.1XXA Overexertion from prolonged static or awkward postures, initial encounter; W01.0XXA Fall on same level from slipping, tripping and stumbling without subsequent striking against object, initial encounter; Y93.H2 Activity, gardening and landscaping; Y92.007 Garden or yard of unspecified non-institutional (private) residence as the place of occurrence of the external cause; S90.41 Abrasion of toe; X58.XXXD Exposure to other specified factors, subsequent encounter
CPT/HCPCS: 73564; 73610; 99283; A9270

== ENCOUNTER 2020-12-31 10:40 | Outpatient (CLI) | payer MEDICARE, BC ==
--- NOTE | 2020-12-31 13:23 | XRAY Report ---
PROCEDURE: Ankle 3 View RT INDICATIONS: DISPLACED BIMALLEOLAR FX, RIGHT ANKLE TECHNIQUE: 3 views of the ankle were acquired. COMPARISON: 12/23/2020 FINDINGS: Bones: No significant change in appearance of minimally displaced distal fibular fracture. Ankle mort ise is intact. No additional fractures or dislocations. No suspicious bony lesions. Soft tissues: No tibiotalar joint effusion. Achilles tendon appears normal. IMPRESSION: No significant change in appearance of minimally displaced distal fibular fracture. Reviewed by: Terry Wade MD on 12/31/2020 1:22 PM PDT Approved by: Terry Wade MD on 12/31/2020 1:22 PM PDT Station ID: [id number]
== END 2020-12-31 23:59 | disposition home or self-care (01) ==
LOC: DI.N 10:40
PROVIDERS: ATTEND Orthopaedic Surgery
DX: S82.831D Other fracture of upper and lower end of right fibula, subsequent encounter for closed fracture with routine healing (principal)

== ENCOUNTER 2021-02-04 10:45 | Outpatient (CLI) | payer MEDICARE, BC ==
--- NOTE | 2021-02-04 18:10 | XRAY Report ---
PROCEDURE: Ankle 3 View RT INDICATIONS: DISPLACED BIMALLEOLAR FX OF R LOWER LEG TECHNIQUE: 3 views of the ankle were acquired. COMPARISON: Prior ankle series dated 12/31/2020 FINDINGS: Bones: No significant interval change in appearance or alignment of mildly displaced lateral and post erior malleolar fractures. Ankle mortise is symmetric. Soft tissues: No tibiotalar joint effusion. Achilles tendon appears normal. IMPRESSION: No significant change in appearance or alignment of a bimalleolar right ankle fracture c ompared to prior examination. Reviewed by: TIFFANY Greer on 02/04/2021 6:09 PM PDT Approved by: Misha Landry on 02/04/2021 6:09 PM PDT Station ID: [id number]
== END 2021-02-04 23:59 | disposition home or self-care (01) ==
LOC: DI.N 10:45
PROVIDERS: ATTEND Orthopaedic Surgery
DX: S82.841D Displaced bimalleolar fracture of right lower leg, subsequent encounter for closed fracture with routine healing (principal)

== ENCOUNTER 2021-07-07 13:51 | Outpatient (CLI) | payer MEDICARE, BC | END 2021-07-07 13:52 | disposition home or self-care (01) | LOC: LAB 13:51 | PROVIDERS: ATTEND Urology | DX: Z85.46 Personal history of malignant neoplasm of prostate (principal) | CPT/HCPCS: 36415; 84153 ==

== ENCOUNTER 2021-07-16 10:28 | Outpatient (CLI) | payer MEDICARE, BC ==
--- NOTE | 2021-07-16 13:46 | Ultrasound Report ---
PROCEDURE: Retroperitoneal Limited INDICATIONS: AAA TECHNIQUE: Real-time scanning was performed of the retroperitoneal organs, with image documentation. COMPARISON: Abdominal ultrasound dated 09/20/2011. FINDINGS: Aorta: Proximal aortic diameter measures 3.1 x 3.0 cm. Mid-aorta measures 2.3 x 2.2 cm. Distal aor tic diameter is 1.7 x 1.7 cm. Scattered atherosclerotic plaque noted in the imaged aorta and iliac v essels. Iliac arteries: Right common iliac artery measures 1.5 x 1.4 cm. Left common iliac artery measures 1.6 x 1.7 cm. 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 There is also ectasia of the bilateral common iliac arteries. Per consensus criteria, recommend follow-up ultrasound imaging in 3 years. Reviewed by: Olman Laurent MD on 07/16/2021 1:45 PM PST Approved by: Olman Laurent MD on 07/16/2021 1:45 PM PST Station ID: [id number]
== END 2021-07-16 10:29 | disposition home or self-care (01) ==
LOC: DI 10:28
PROVIDERS: ATTEND Internal Medicine
DX: I71.4 Abdominal aortic aneurysm, without rupture (principal); I77.89 Other specified disorders of arteries and arterioles

== ENCOUNTER 2022-09-30 11:49 | Outpatient (CLI) | payer MEDICARE, BC | END 2022-09-30 11:50 | disposition home or self-care (01) | LOC: LAB 11:49 | PROVIDERS: ATTEND Urology | DX: Z12.5 Encounter for screening for malignant neoplasm of prostate (principal) | CPT/HCPCS: 36415; G0103; 84153 ==

== ENCOUNTER 2023-01-06 15:02 | Outpatient (CLI) | payer MEDICARE, BC | END 2023-01-06 23:59 | disposition critical access hospital (66) | LOC: EMS 15:02 | DX: M54.50 Low back pain, unspecified (principal); M54.2 Cervicalgia; R53.1 Weakness; W01.0XXA Fall on same level from slipping, tripping and stumbling without subsequent striking against object, initial encounter; Y92.007 Garden or yard of unspecified non-institutional (private) residence as the place of occurrence of the external cause | CPT/HCPCS: A0425; A0429 ==

== ENCOUNTER 2023-01-06 15:35 | Inpatient (IN) | payer MEDICARE, BC ==
[2023-01-06] MEDS ORDERED: HYDROmorphone 1 MG/ML CARPUJECT IVP STA (15:41)
[2023-01-06] MEDS ORDERED: SODIUM CHLORIDE 0.9% 1,000 ML IV STA (15:42)
--- NOTE | 2023-01-06 15:44 | ED Physician Documentation ---
History of Present Illness - Stated complaint Stated Complaint: GLF DIZZY - Chief complaint Chief Complaint: Trauma Ch/Bk - History obtained from History obtained from: Patient - Additonal information Additional information: This is an 87-year-old who lives alone. He seems very spry and grew up in [place]. He has a history of hypertension, GERD, prostate issues with chronic incontinence. He says that for the last month he has been having episodes where he blacks out. Last night he had this when he was walking outside of his house and end up falling backwards and hitting the back of his he ad and hurting his back and right hip. For the most part he laid on the ground all night and was down for about 24 hours outside, "it was quite chilly." Complaints at this point include a posterior headache, right hip pain and back pain. He denies chest pain or trouble breathing. PD PAST MEDICAL HISTORY - Past Medical History Cardiovascular: Hypertension, Arrhythmia Respiratory: Sleep apnea (does not use cpap) Neuro: None Endocrine/Autoimmune: None GI: GERD (controlled with diet.) : Incontinence HEENT: Chronic vision loss, Chronic hearing loss, Other Psych: Depression Musculoskeletal: None Derm: Herpes zoster, Other - Past Surgical History Past Surgical History: Yes General: Colonoscopy Neuro: [employer] shunt HEENT: Cataracts, Tonsil/Adenoidectomy - Present Medications Home Medications: Ambulatory Orders Medication Instructions Recorded Confirmed amLODIPine [Norvasc] 2.5 mg PO DAILY 11/30/17 01/06/23 Acetaminophen [Acetaminophen Extra 1,000 mg PO BID 01/06/23 01/06/23 Strength] Omeprazole 20 mg PO DAILY 01/06/23 01/06/23 Sertraline [Zoloft] 100 mg PO DAILY 01/06/23 01/06/23 - Allergies Allergies/Adverse Reactions: Allergies Allergy/AdvReac Type Severity Reaction Status Date / Time venom-honey bee Allergy Severe Respiratory Verified 01/06/23 15:39 [bee venom (honey bee)] and swelling iodine Allergy Intermediate Hives Verified 01/06/23 15:39 ciprofloxacin [From Cipro] Allergy Mild Rash Verified 01/06/23 15:39 ciprofloxacin HCl * Allergy Mild Rash Verified 01/06/23 15:39 [From Cipro] DYLON Inhibitors Allergy cough Verified 01/06/23 15:39 Sulfa (Sulfonamide AdvReac Mild Nausea Verified 01/06/23 15:39 Antibiotics) yellow jackets Allergy Anaphylaxis Uncoded 01/06/23 15:39 - Social History Does the pt smoke?: No Smoking Status: Never smoker Does the pt drink ETOH?: No Does the pt have substance abuse?: No - Immunizations Immunizations are current?: Yes Immunizations: TDAP >10years/unknown - POLST Patient has POLST: No PD ED PE NORMAL - Vitals Vital signs reviewed: Yes - General General: Alert and oriented X 3, No acute distress - HEENT HEENT: PERRL, EOMI - Neck Neck: No bony TTP - Cardiac Cardiac: RRR, No murmur - Respiratory Respiratory: No respiratory distress, Clear bilaterally - Abdomen Abdomen: Non tender, Other (Somewhat distended of unclear acuity) - Back Back: No CVA TTP, No spinal TTP - Derm Derm: Normal color, Warm and dry - Extremities Extremities: Other (He cannot range the right hip much, he is mildly tender. Modestly painful with internal and external rotation. He has sores on both feet including what looks like a popped blister on the right big toe.) - Neuro Neuro: Alert and oriented X 3, Normal speech Eye Opening: Spontaneous Motor: Obeys Commands Verbal: Oriented GCS Score: 15 Results - Vitals Vitals: Vital Signs - 24 hr 01/06/23 01/06/23 01/06/23 15:39 16:25 16:27 Temperature 36.8 C Heart Rate 74 Respiratory 16 Rate Blood Pressure 140/90 H O2 Saturation 94 85 L 86 L If not protocol : Oxygen Flow, liters/minute 01/06/23 01/06/23 16:28 18:04 Temperature Heart Rate 74 Respiratory 17 Rate Blood Pressure 157/93 H O2 Saturation 93 96 If not protocol 2 2 : Oxygen Flow, liters/minute Oxygen O2 Source Nasal cannula - EKG (time done) 2296 EKG releavant findings:: EKG personally interpreted by author of this note. Relevant findings are: Rate: Rate (enter#) (75) Rhythm: Other (Underlying rhythm hard to discern due to artifact, I believe it to be normal sinus rhythm with frequent PVCs.) [place]: Normal QRS: Normal Ischemia: Non specific changes - Labs Labs: Laboratory Tests 01/06/23 01/06/23 01/06/23 16:04 16:04 16:04 WBC 16.2 H RBC 4.83 Hgb 16.0 Hct 47.1 MCV 97.5 H MCH 33.1 H MCHC 34.0 RDW 13.2 Plt Count 189 MPV 11.0 Neut # (Auto) Not Reportable Lymph # (Auto) Not Reportable [place] # (Auto) Not Reportable Eos # (Auto) Not Reportable Baso # (Auto) Not Reportable Absolute Nucleated RBC Not Reportable Total Counted 100 Band Neuts % (Manual) 4 Abnorm Lymph % (Manual) 0 Nucleated RBC % Not Reportable Neutrophils # (Manual) 13.6 H Lymphocytes # (Manual) 1.0 L Monocytes # (Manual) 1.5 H Eosinophils # (Manual) 0.0 Basophils # (Manual) 0.2 H Differential Comment MANUAL DIFFERENTIAL Platelet Estimate NORMAL (130-450,000) Platelet Morphology NORMAL APPEARANCE RBC Morph Micro Appear NORMAL APPEARANCE PT 12.0 INR 1.1 Sodium 139 Potassium 4.3 Chloride 103 Carbon Dioxide 26 Anion Gap 10.0 BUN 27 H Creatinine 1.1 Estimated GFR (MDRD) 63 L Glucose 147 H Lactic Acid Calcium 9.5 Magnesium 1.7 Total Bilirubin 1.9 H AST 98 H ALT 31 Alkaline Phosphatase 108 Total Creatine Kinase 3339 H* Total Protein 7.4 Albumin 4.3 Globulin 3.1 Albumin/Globulin Ratio 1.4 Urine Color Urine Clarity Urine pH Ur Specific [place] Urine Protein Urine Glucose (UA) Urine Ketones Urine Occult Blood Urine Nitrite Urine Bilirubin Urine Urobilinogen Ur Leukocyte Esterase Urine RBC Urine WBC Ur Squamous Epith Cells Urine Bacteria Urine Casts Ur Microscopic Review Urine Culture Comments 01/06/23 01/06/23 16:04 17:05 WBC RBC Hgb Hct MCV MCH MCHC RDW Plt Count MPV Neut # (Auto) Lymph # (Auto) [place] # (Auto) Eos # (Auto) Baso # (Auto) Absolute Nucleated RBC Total Counted Band Neuts % (Manual) Abnorm Lymph % (Manual) Nucleated RBC % Neutrophils # (Manual) Lymphocytes # (Manual) Monocytes # (Manual) Eosinophils # (Manual) Basophils # (Manual) Differential Comment Platelet Estimate Platelet Morphology RBC Morph Micro Appear PT INR Sodium Potassium Chloride Carbon Dioxide Anion Gap BUN Creatinine Estimated GFR (MDRD) Glucose Lactic Acid 2.6 H Calcium Magnesium Total Bilirubin AST ALT Alkaline Phosphatase Total Creatine Kinase Total Protein Albumin Globulin Albumin/Globulin Ratio Urine Color YELLOW Urine Clarity CLEAR Urine pH 5.0 Ur Specific [place] >=1.030 H Urine Protein 30 H Urine Glucose (UA) NEGATIVE Urine Ketones 15 H Urine Occult Blood LARGE H Urine Nitrite NEGATIVE Urine Bilirubin NEGATIVE Urine Urobilinogen 0.2 (NORMAL) Ur Leukocyte Esterase NEGATIVE Urine RBC 6-10 H Urine WBC 0-3 Ur Squamous Epith Cells FEW Squamous Urine Bacteria Rare Urine Casts 0-2 Hyaline Casts Ur Microscopic Review INDICATED Urine Culture Comments NOT INDICATED - Rads (name of study) 2 view x-ray of the right hip is negative for obvious fracture. Relevant Findings:: Final report received, EMP independent interpretation of test CT of the cervical spine shows severe spondylosis without acute abnormality Relevant Findings:: Final report received, EMP independent interpretation of test CT of the chest with contrast demonstrates no trauma, mild cardiomegaly, mild a sending aortic dilatation Relevant Findings:: Final report received, EMP independent interpretation of test CT of the abdomen pelvis did not demonstrates diverticulosis and lumbar degenerative changes, no evidence of trauma. Relevant Findings:: Final report received, EMP independent interpretation of test CT of the head demonstrates no evidence of hydrocephalus or shunt malfunction. No trauma. Relevant Findings:: Final report received, EMP independent interpretation of test PD Medical Decision Making - ED course ED course: CBC showing leukocytosis of unclear etiology. INR normal. CMP demonstrating mild prerenal azotemia. He has a modest elevation of lactic acid and he does have rhabdomyolysis with a CK of 3339. Urinalysis showing blood which may be from the rhabdomyolysis. This is an older gentleman with a [employer] shunt who fell last night and injured his right hip and he can get off the ground and he laid outside all night. He is developed mild rhabdomyolysis and mild prerenal azotemia but given his advanced age probably should be admitted. There is no evidence of malfunction on the his [employer] shunt looking at images. EKG G showing a lot of ectopy but nothing suggestive of ischemia. Telehealth consultation placed at 7 PM for admission. Departure - Departure Disposition: 66 [facility] DC/Xfer Clinical Impression: Normal pressure hydrocephalus, Prerenal azotemia Fall Qualifiers: Encounter type: initial encounter Qualified Code(s): W19.XXXA - Unspecified fall, initial encounter Contusion of right hip Qualifiers: Encounter type: initial encounter Qualified Code(s): S70.01XA - Contusion of right hip, initial encounter Rhabdomyolysis Qualifiers: Rhabdomyolysis type: non-traumatic Qualified Code(s): M62.82 - Rhabdomyolysis Condition: Good Forms: PCP List
[2023-01-06] MEDS ORDERED: iohexoL-300 100 ML VIAL ONE (16:04)
[2023-01-06 16:10] LABS: BASOPHILS % (AUTO) 0.2 %; HCT - HEMATOCRIT 47.1 % (42.0-52.0); LYMPHOCYTES % (AUTO) 6.6 %; MEAN CORPUSCULAR HEMOGLOBIN 33.1 pg (27.0-31.0); MEAN CORPUSCULAR VOLUME 97.5 fL (80.0-94.0); MONOCYTES % (AUTO) 9.5 %; NEUTROPHILS % (AUTO) 83.3 %; PLT - PLATELET COUNT 189 10^3/uL (130-450); RED BLOOD COUNT 4.83 10^6/uL (4.70-6.10); RED CELL DISTRIBUTION WIDTH 13.2 % (12.0-15.0); WHITE BLOOD COUNT 16.2 x10^3/uL (4.8-10.8)
[2023-01-06 16:11] LABS: ABNORMAL LYMPHS % (MANUAL) 0 %
[2023-01-06 16:17] LABS: INR 1.1 (0.8-1.2)
--- NOTE | 2023-01-06 16:19 | XRAY Report ---
PROCEDURE: Hip w/Pelvis 2-3V RT INDICATIONS: Syncope,Fall, head and back and right hip injuries TECHNIQUE: AP pelvis with lateral view(s) of the hip(s). COMPARISON: None. FINDINGS: Bones: No fractures or dislocations. No suspicious bony lesions. Soft tissues: No suspicious soft tissue calcifications or masses. Brachytherapy clips of the prost ate. IMPRESSION: No acute bony abnormality. If there remains a high clinical concern for fracture, including inability to bear weight, consider cross-sectional imaging to exclude an occult fracture. Reviewed by: Damion Swanson on 01/06/2023 4:18 PM PDT Approved by: Damion Swanson on 01/06/2023 4:18 PM PDT Station ID: [id number]
[2023-01-06 16:25] LABS: ALBUMIN 4.3 g/dL (3.2-5.5); ALBUMIN/GLOBULIN RATIO 1.4 (1.0-2.2); BILIRUBIN,TOTAL 1.9 mg/dL (0.2-1.0); CALCIUM 9.5 mg/dL (8.5-10.3); CREATININE 1.1 mg/dL (0.6-1.3); MAGNESIUM 1.7 mg/dL (1.7-2.3); POTASSIUM 4.3 mmol/L (3.5-4.5); TOTAL PROTEIN 7.4 g/dL (6.4-8.9)
[2023-01-06 16:27] LABS: BAND NEUTROPHILS % (MANUAL) 4 %; BASOPHILS # (MANUAL) 0.2 10^3/uL (0-0.1); BASOPHILS % (MANUAL) 1 %; LYMPHOCYTES % (MANUAL) 6 %; MONOCYTES # (MANUAL) 1.5 10^3/uL (0.0-1.0); NEUTROPHILS # (MANUAL) 13.6 10^3/uL (1.5-6.6)
[2023-01-06 16:28] LABS: DIFFERENTIAL COMMENT MANUAL DIFFERENTIAL; PLATELET ESTIMATE, MANUAL NORMAL (130-450,000) (NORMAL); PLATELET MORPHOLOGY NORMAL APPEARANCE (NORMAL); RBC MORPHOLOGY (MULTIPLE) NORMAL APPEARANCE (NORMAL)
[2023-01-06 17:16] LABS: GLUCOSE, URINE (UA) NEGATIVE (NEGATIVE); KETONES,URINE (UA) 15 mg/dL (NEGATIVE); LEUKOCYTE ESTERASE, URINE NEGATIVE (NEGATIVE); NITRITE,URINE NEGATIVE (NEGATIVE); OCCULT BLOOD,URINE LARGE (NEGATIVE); PROTEIN,URINE 30 mg/dL (NEGATIVE); UROBILINOGEN,URINE 0.2 (NORMAL) E.U./dL (NORMAL)
[2023-01-06 17:18] LABS: BILIRUBIN,URINE NEGATIVE (NEGATIVE); CLARITY,URINE CLEAR (CLEAR); ICTOTEST,URINE NEGATIVE
[2023-01-06 17:21] LABS: BACTERIA,URINE Rare /HPF (None Seen); CASTS, URINE 0-2 Hyaline Casts /LPF; SQUAMOUS EPITHELIAL CELL,UR FEW Squamous (<= Few); WBC,URINE 0-3 /HPF (0-3)
[2023-01-06] MEDS: SODIUM CHLORIDE 0.9% 1,000 ML IV STA ×2 (17:36→20:32)
--- NOTE | 2023-01-06 17:49 | CT Report ---
PROCEDURE: CHEST W INDICATIONS: Syncope,Fall, head and back and right hip injuries CONTRAST: 100ml omni 300 TECHNIQUE: After the administration of intravenous contrast, 1 mm axial images were acquired from the pulmonary apices through the posterior costophrenic angles. Axial 5 mm soft tissue kernel reconstructions were performed as well as 8 mm axial MIP and coronal and sagittal 5 mm reformations. For radiation dose reduction, the following was used: automated exposure control, adjustment of mA and/or kV according to patient size. COMPARISON: None. FINDINGS: Image quality: Excellent. Lungs and pleura: No consolidation. No pleural effusions. No pneumothorax. No suspicious pulmonary n odules which require follow up. Mediastinum: Mild cardiomegaly. No pericardial effusion. Very mild aneurysmal dilatation of the ascen ding aorta measuring 4.2 cm. No mediastinal adenopathy by size criteria. Chest wall and lower neck: Thyroid is unremarkable. No axillary or supraclavicular adenopathy by size . Bones: No aggressive osseous abnormality. Upper Abdomen: Unremarkable. IMPRESSION: 1. No significant evidence of sequelae of acute trauma in the chest. No acute pulmonary process. 2. Mild cardiomegaly. 3. Very mild aneurysmal dilatation of the ascending aorta. Reviewed by: Terry Wade MD on 01/06/2023 5:48 PM PDT Approved by: eTrry Wade MD on 01/06/2023 5:48 PM PDT Station ID: [id number]
--- NOTE | 2023-01-06 17:51 | CT Report ---
PROCEDURE: CERVICAL SPINE WO INDICATIONS: Syncope,Fall, head and back and right hip injuries TECHNIQUE: Noncontrast 3 mm thick sections acquired from the skull base to the T4 level. Sagittal and coronal r eformats were then constructed. For radiation dose reduction, the following was used: automated exp osure control, adjustment of mA and/or kV according to patient size. COMPARISON: None. FINDINGS: Image quality: Excellent. Bones: No fractures or dislocations. Visualized superior ribs are intact. Severe diffuse cervical s pondylitic change with multilevel advanced facet arthropathy and multilevel uncovertebral joint osteo phytes and multilevel bony foraminal narrowing. Soft tissues: Prevertebral soft tissues are normal in thickness. No paravertebral hematomas. No ap ical pneumothoraces. IMPRESSION: 1. No acute cervical fracture or dislocation. 2. Severe cervical spondylosis. Reviewed by: Terry Wade MD on 01/06/2023 5:50 PM PDT Approved by: Terry Wade MD on 01/06/2023 5:50 PM PDT Station ID: [id number]
--- NOTE | 2023-01-06 18:02 | CT Report ---
PROCEDURE: HEAD WO INDICATIONS: Syncope,Fall, head and back and right hip injuries TECHNIQUE: Noncontrast 4.5 mm thick angled axial sections acquired from the foramen magnum to the vertex. For r adiation dose reduction, the following was used: automated exposure control, adjustment of mA and/or kV according to patient size. COMPARISON: None. FINDINGS: Image quality: Excellent. CSF spaces: Basal cisterns are patent. No extra-axial fluid collections. Ventricles are normal in size and shape. A ventriculostomy catheter enters through a right foraminal defect, into the right l ateral ventricle. Brain: No midline shift. No intracranial masses or hemorrhage. Russo-white matter interface is norm al. Age-related volume loss and age-appropriate small vessel ischemic change. Skull and face: Calvarium and visualized facial bones are intact, without suspicious lesions. Sinuses: Visualized sinuses and mastoids are clear. IMPRESSION: 1. No evidence of shunt malfunction. No hydrocephalus. 2. No acute intracranial process identified. 3. Age-appropriate volume loss and small vessel ischemic change. Reviewed by: Terry Wade MD on 01/06/2023 6:00 PM PDT Approved by: Terry Wade MD on 01/06/2023 6:00 PM PDT Station ID: [id number]
--- NOTE | 2023-01-06 18:06 | CT Report ---
PROCEDURE: ABDOMEN/PELVIS W INDICATIONS: Syncope,Fall, head and back and right hip injuries CONTRAST: 100ml omni 300 TECHNIQUE: After the administration of intravenous contrast, 5 mm thick sections acquired from the diaphragms to the symphysis. 5 mm thick coronal and sagittal reformats were acquired. For radiation dose reducti on, the following was used: automated exposure control, adjustment of mA and/or kV according to mega ent size. COMPARISON: CT chest from the same date FINDINGS: Image quality: Excellent. Lung bases and heart: Unremarkable. Liver: No solid mass. Gallbladder and biliary tree: Gallstones present. No gallbladder wall thickening or fluid around the gallbladder. Spleen: No splenomegaly. Pancreas: No pancreatic ductal dilation. Adrenals: No adrenal nodule. Kidneys and ureters: No hydronephrosis. No renal cystic lesion which requires follow up. No solid mas s. Bowel and peritoneum: No bowel distension. No pathologic free fluid. Incidental note made of a duoden al diverticulum. Diverticulosis without evidence of acute diverticulitis. Ventricular shunt catheter present. Lymph nodes: No central or retroperitoneal adenopathy. Vessels: No infrarenal aortic aneurysm. PELVIS Reproductive organs: Unremarkable. Bladder: No abnormal wall thickening, accounting for underdistension. Pelvic lymph nodes: No pelvic adenopathy by size criteria. Bones: No aggressive osseous abnormality. Lumbar degenerative change. Canal stenosis at L4-L5. There is also a left foraminal disc bulge. There is severe bilateral foraminal narrowing, right greater robin n left. Other: Fat-containing left inguinal hernia. No inguinal adenopathy. IMPRESSION: 1. No evidence of significant sequelae of acute trauma in the abdomen and pelvis. 2. Diverticulosis. 3. Lumbar degenerative change with canal stenosis and significant bilateral foraminal narrowing at L4 -L5. Reviewed by: Terry Wade MD on 01/06/2023 6:05 PM PDT Approved by: Terry Wade MD on 01/06/2023 6:05 PM PDT Station ID: [id number]
[2023-01-06] MEDS ORDERED: iohexoL-300 100 ML VIAL IVP ONE (19:10)
--- NOTE | 2023-01-06 19:16 | HISTORY & PHYSICAL EXAMINATION ---
Chief Complaint - Chief Complaint Chief Complaint: Fall History of Present Illness - Admitted From Admitted From:: ER - History Obtained From Records Reviewed: Yes History obtained from: Patient, chart, staff Exam Limitations: H&P was conducted via video remotely, using Access Cart. - History of Present Illness HPI Comment/Other: Patient is in [place]. Physician is in [place]. No one is at bedside. 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 Pt had frequent falls prior to his shunt placement. He is no longer falling in that way now. He now c/o frequent Syncopal episodes. He is not sure how long he has been having this episodes, but they have been going on for >1 month. He estimates that he has Syncope/LOC about 3-4x/week. He will be standing, then suddenly pass out. He will have LOC for about 15-20 minutes, usually unwitnessed. No dizziness prior to Syncope. Pt has not been checking his BPs, though he does have a BP monitor. Last night, pt was feeling achey. He took some Tylenol. Then, he went outside to put his tools away. He turned back to the house, then felt himself beginning to fall and passed out. When he woke up, he felt sore all over, including his head, but especially his R hip. He felt weak. He tried to crawl to his porch steps b/c he did not want to get stuck outside, but he could not do it. He finally gave up and lie on the ground all night long, about 12 hours. At first, it was pleasant. Then, he had urinary incontinence into his diaper. He was wet and the weather turned colder. This AM, friend found him and called EMS. Pt denies CP/SOB/F/C/Dizziness. He has pain in his post head, his back and his R hip. He lives alone and his good friend has been talking to him about moving to an LONG-TERM. Pt is willing to consider this now after this experience. In the ER, BP 156/104, SpO2 86% RA, 93% 2L NC O2, WBC 16.2, Glc 147, CK 3339, A ST 98, LA 2.6, U/A: +bld, GFR 63. EKG: NSR at 75 bpm, +PVCs, no STTw changes Hip/Pelvis Xray: NAD Abdo/Pelvis CT: DJD, NAD Head CT: no evidence of shunt malfunction, NAD Cspine CT: DJD, NAD Chest CT: NAD Pt was given Dilaudid, IVF 1L then 150 ml/hr in the ER. History - Past Medical History Cardiovascular: reports: Hypertension, Arrhythmia Respiratory: reports: Sleep apnea (does not use cpap) Neuro: reports: None Endocrine/Autoimmune: reports: None GI: reports: GERD (controlled with diet.) : reports: Incontinence HEENT: reports: Chronic vision loss, Chronic hearing loss, Other Psych: reports: Depression Musculoskeletal: reports: None Derm: reports: Herpes zoster, Other MRSA Hx?: No - Past Surgical History General: reports: Colonoscopy Neuro: reports: [employer] OPERATOR shunt HEENT: reports: Cataracts, Tonsil/Adenoidectomy - POLST Patient has POLST: No Meds/Allgy - Home Medications Home Medications: Ambulatory Orders Medication Instructions Recorded Confirmed amLODIPine [Norvasc] 2.5 mg PO DAILY 11/30/17 01/06/23 Acetaminophen [Acetaminophen Extra 1,000 mg PO BID 01/06/23 01/06/23 Strength] Omeprazole 20 mg PO DAILY 01/06/23 01/06/23 Sertraline [Zoloft] 100 mg PO DAILY 01/06/23 01/06/23 - Allergies Allergies/Adverse Reactions: Allergies Allergy/AdvReac Type Severity Reaction Status Date / Time venom-honey bee Allergy Severe Respiratory Verified 01/06/23 15:39 [bee venom (honey bee)] and swelling iodine Allergy Intermediate Hives Verified 01/06/23 15:39 ciprofloxacin [From Cipro] Allergy Mild Rash Verified 01/06/23 15:39 ciprofloxacin HCl * Allergy Mild Rash Verified 01/06/23 15:39 [From Cipro] DYLON Inhibitors Allergy cough Verified 01/06/23 15:39 Sulfa (Sulfonamide AdvReac Mild Nausea Verified 01/06/23 15:39 Antibiotics) yellow jackets Allergy Anaphylaxis Uncoded 01/06/23 15:39 Review of Systems - All Other Systems All Other Systems: reports: Reviewed and negative Exam - Vital Signs Reviewed Vital Signs: Yes Vital Signs: Vital Signs x48h Temp Pulse Resp BP Pulse Ox O2 Flow Rate 01/06/23 19:09 18 156/104 H 94 2 01/06/23 18:04 74 17 157/93 H 96 2 01/06/23 16:28 93 2 01/06/23 16:27 86 L 01/06/23 16:25 85 L 01/06/23 15:39 36.8 C 74 16 140/90 H 94 - Physical Exam General Appearance: positive: No acute distress Eyes Bilateral: positive: PERRL, EOMI, No scleral icterus ENT: positive: Dry mucous membranes Respiratory: positive: Other (Access cart stethoscope not working; per ER Provider: CTA B/L) Cardiovascular: positive: Other (Access cart stethoscope not working; per ER Provider: RRR, no murmurs) Abdomen: positive: Other (per ER Provider: non-distended, NT, Soft) Extremities: positive: Other (per ER Provider: moves all extrem, no edema, +mild TTP R hip) Neurologic/Psychiatric: positive: Oriented x3, Mood/affect nml Conclusion/Plan - Problem List (1) Rhabdomyolysis Conclusion/Plan: Syncope Frequent Syncopal Episodes -EKG: NSR at 75 bpm, +PVCs, no STTw changes -Head CT: no evidence of shunt malfunction, NAD -admit to Med Tele -Echo ordered -trend Troponins -Carotid U/S ordered -check Orthostatic BPs -possibly d/t Hypoxia Rhabdomyolysis KIERAN -CK 3339, AST 98, U/A: +bld, GFR 63. -most likely prerenal -Pt was given IVF 1L then 150 ml/hr in the ER. -continue IVF -avoid nephrotoxins -trend CKs R hip pain Weakness -Hip/Pelvis Xray: NAD -Abdo/Pelvis CT: DJD, NAD -Cspine CT: DJD, NAD -Pt was given Dilaudid in the ER. 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 He says that he has a Advance Directive with DNR/DNI. His friend Denzel has a copy of this. ~Celina Alvarez MD Hospitalist Qualifiers: Rhabdomyolysis type: traumatic - Lab Results Lab results reviewed: Yes Fish Bones: 01/06/23 16:04 01/06/23 16:04
[2023-01-06] MEDS ORDERED: SODIUM CHLORIDE FLUSH 0.9% 10 ML SYRINGE IVP PRN (19:35)
[2023-01-06] MEDS ORDERED: ONDANSETRON 4 MG/2 ML VIAL IVP PRN (19:35)
[2023-01-06] MEDS ORDERED: ONDANSETRON ODT 4 MG TABLET TL PRN (19:35)
[2023-01-06] MEDS: HEPARIN 5,000 UNIT/ML VIAL SUBQ SCH (20:42)
[2023-01-06] MEDS: ACETAMINOPHEN 500 MG TABLET PO SCH (20:42)
[2023-01-06] MEDS ORDERED: IPRATROPIUM/ALBUTEROL 3 ML NEB INH PRN (20:50)
[2023-01-07] MEDS: SODIUM CHLORIDE 0.9% 1,000 ML IV SCH ×3 (00:06→13:29)
[2023-01-07] MEDS: SODIUM CHLORIDE FLUSH 0.9% 10 ML SYRINGE IVP SCH ×4 (04:45→23:15)
[2023-01-07] MEDS ORDERED: BACITRACIN ZINC OINT 1 PACKET TOP PRN (04:47)
[2023-01-07] MEDS ORDERED: ZINC OXIDE 20% OINT 30 GM TUBE TOP PRN (04:47)
[2023-01-07 04:57] LABS: BASOPHILS % (AUTO) 0.2 %; EOSINOPHILS % (AUTO) 0.3 %; HGB - HEMOGLOBIN 13.8 g/dL (14.0-18.0); LYMPHOCYTES # (AUTO) 1.4 10^3/uL (1.5-3.5); LYMPHOCYTES % (AUTO) 13.9 %; MEAN CORPUSCULAR HEMOGLOBIN 33.4 pg (27.0-31.0); MEAN CORPUSCULAR HGB CONC 33.7 g/dL (32.0-36.0); MEAN CORPUSCULAR VOLUME 99.3 fL (80.0-94.0); MEAN PLATELET VOLUME 10.6 fL (7.4-11.4); MONOCYTES # (AUTO) 1.2 10^3/uL (0.0-1.0); MONOCYTES % (AUTO) 11.8 %; NEUTROPHILS # (AUTO) 7.3 10^3/uL (1.5-6.6); NEUTROPHILS % (AUTO) 73.3 %; PLT - PLATELET COUNT 156 10^3/uL (130-450); RED BLOOD COUNT 4.13 10^6/uL (4.70-6.10); RED CELL DISTRIBUTION WIDTH 13.6 % (12.0-15.0); WHITE BLOOD COUNT 9.9 x10^3/uL (4.8-10.8)
[2023-01-07] MEDS: SERTRALINE 50 MG TABLET PO SCH (08:45)
[2023-01-07] MEDS: PANTOPRAZOLE 40 MG TABLET PO SCH (08:45)
[2023-01-07] MEDS: ACETAMINOPHEN 500 MG TABLET PO SCH ×2 (08:45→20:20)
[2023-01-07] MEDS: HEPARIN 5,000 UNIT/ML VIAL SUBQ SCH ×2 (08:46→20:19)
--- NOTE | 2023-01-07 13:21 | PROVIDER PROGRESS NOTE ---
Assessment/Plan - Problem List (1) Syncope and collapse Assessment/Plan: Pt presented with syncopal episode. No symptoms prior or after. Pt has had similar episodes in the past without evaluation -Telemetry -Check orthostatic BP,pulse and record -Serial tropinins -Echocardiogram ordered -Carotid duplex (2) Rhabdomyolysis Qualifiers: Rhabdomyolysis type: traumatic Assessment/Plan: Patient was down for about 12 hours -ivf for rhabdo -CPK 2855 to 1938 to 1411 (3) Prerenal azotemia Assessment/Plan: Most likely secondary to Rhabdo -Monitor and avoid nephrotoxic agents (4) Normal pressure hydrocephalus Assessment/Plan: -Stable shunt per imaging - Current Meds Current Meds: Current Medications Generic Name Dose Route Start Last Admin Trade Name Freq PRN Reason Stop Dose Admin Acetaminophen 1,000 mg 01/06/23 21:00 01/07/23 08:45 Acetaminophen 500 Mg Tablet PO 1,000 mg BID JORDON Administration Heparin Sodium (Porcine) 5,000 unit 01/06/23 21:00 01/07/23 08:46 Heparin 5,000 Unit/Ml Vial SUBQ 5,000 unit BID JORDON Administration Pantoprazole Sodium 40 mg 01/07/23 09:00 01/07/23 08:45 Pantoprazole 40 Mg Tablet PO 40 mg DAILY JORDON Administration Sertraline HCl 100 mg 01/07/23 09:00 01/07/23 08:45 Sertraline 50 Mg Tablet PO 100 mg DAILY JORDON Administration Sodium Chloride 10 ml 01/07/23 01:00 01/07/23 08:45 Sodium Chloride Flush 0.9% 10 Ml Syringe IVP Not Given 0100,0900,1700 JORDON - Lab Result Fish Bone Diagrams: 01/07/23 04:47 01/06/23 16:04 - Additional Planning My Orders: My Active Orders 01/07/23 14:00 Sodium Chloride 0.9% [Normal Saline 0.9%] 1,000 ml IV 100 mls/hr Subjective - Subjective Patient Reports: Feeling Better, Resting Comfortably Objective Vital Signs: Vital Signs - 24 hr 01/06/23 01/06/23 01/06/23 15:39 16:25 16:27 Temperature 36.8 C Heart Rate 74 Heart Rate [ Brachial] Heart Rate [ Monitoring electrodes] Respiratory 16 Rate Blood Pressure 140/90 H Blood Pressure [Left Brachial artery] O2 Saturation 94 85 L 86 L If not protocol : Oxygen Flow, liters/minute 01/06/23 01/06/23 01/06/23 16:28 18:04 19:09 Temperature Heart Rate 74 Heart Rate [ Brachial] Heart Rate [ Monitoring electrodes] Respiratory 17 18 Rate Blood Pressure 157/93 H 156/104 H Blood Pressure [Left Brachial artery] O2 Saturation 93 96 94 If not protocol 2 2 2 : Oxygen Flow, liters/minute 01/06/23 01/06/23 01/06/23 20:31 20:40 23:00 Temperature 36.8 C 36.8 C Heart Rate Heart Rate [ Brachial] Heart Rate [ 77 84 Monitoring electrodes] Respiratory 22 20 Rate Blood Pressure Blood Pressure 153/88 H 123/77 [Left Brachial artery] O2 Saturation 92 99 If not protocol 2 2 : Oxygen Flow, liters/minute 01/06/23 01/07/23 01/07/23 23:45 02:00 08:00 Temperature 36.8 C 36.6 C 36.7 C Heart Rate Heart Rate [ 72 Brachial] Heart Rate [ 84 80 Monitoring electrodes] Respiratory 18 20 20 Rate Blood Pressure Blood Pressure 123/77 129/70 138/80 H [Left Brachial artery] O2 Saturation 99 97 96 If not protocol 2 : Oxygen Flow, liters/minute Oxygen O2 Source Room air I&O (Last 24 Hrs): Intake and Output Totals x24h 01/05/23 01/06/23 01/07/23 23:59 23:59 23:59 Intake Total 1590 1180 Balance 1590 1180 General: Alert, Oriented x3 HEENT: Atraumatic Neck: Supple Lymphatic: no adenopathy Neuro: Alert, Non Focal Cardiovascular: Regular rate, Normal S1, Normal S2 Respiratory: Chest non-tender, No respiratory distress Abdomen: Normal bowel sounds, Soft Extremities: Other (1+ LE edema) - Results Results: Laboratory Results WBC 9.9 x10^3/uL (4.8-10.8) 01/07/23 04:47 RBC 4.13 10^6/uL (4.70-6.10) L 01/07/23 04:47 Hgb 13.8 g/dL (14.0-18.0) L 01/07/23 04:47 Hct 41.0 % (42.0-52.0) L 01/07/23 04:47 MCV 99.3 fL (80.0-94.0) H 01/07/23 04:47 MCH 33.4 pg (27.0-31.0) H 01/07/23 04:47 MCHC 33.7 g/dL (32.0-36.0) 01/07/23 04:47 RDW 13.6 % (12.0-15.0) 01/07/23 04:47 Plt Count 156 10^3/uL (130-450) 01/07/23 04:47 MPV 10.6 fL (7.4-11.4) 01/07/23 04:47 Neut # (Auto) 7.3 10^3/uL (1.5-6.6) H 01/07/23 04:47 Lymph # (Auto) 1.4 10^3/uL (1.5-3.5) L 01/07/23 04:47 [place] # (Auto) 1.2 10^3/uL (0.0-1.0) H 01/07/23 04:47 Eos # (Auto) 0.0 10^3/uL (0.0-0.7) 01/07/23 04:47 Baso # (Auto) 0.0 10^3/uL (0.0-0.1) 01/07/23 04:47 Absolute Nucleated RBC 0.00 x10^3/uL 01/07/23 04:47 Total Counted 100 01/06/23 16:04 Band Neuts % (Manual) 4 % (0-10) 01/06/23 16:04 Abnorm Lymph % (Manual) 0 % 01/06/23 16:04 Nucleated RBC % 0.0 /100WBC 01/07/23 04:47 Neutrophils # (Manual) 13.6 10^3/uL (1.5-6.6) H 01/06/23 16:04 Lymphocytes # (Manual) 1.0 10^3/uL (1.5-3.5) L 01/06/23 16:04 Monocytes # (Manual) 1.5 10^3/uL (0.0-1.0) H 01/06/23 16:04 Eosinophils # (Manual) 0.0 10^3/uL (0-0.7) 01/06/23 16:04 Basophils # (Manual) 0.2 10^3/uL (0-0.1) H 01/06/23 16:04 Differential Comment MANUAL DIFFERENTIAL 01/06/23 16:04 Platelet Estimate NORMAL (130-450,000) (NORMAL) 01/06/23 16:04 Platelet Morphology NORMAL APPEARANCE (NORMAL) 01/06/23 16:04 RBC Morph Micro Appear NORMAL APPEARANCE (NORMAL) 01/06/23 16:04 PT 12.0 secs (9.9-12.6) 01/06/23 16:04 INR 1.1 (0.8-1.2) 01/06/23 16:04 Sodium 139 mmol/L (135-145) 01/06/23 16:04 Potassium 4.3 mmol/L (3.5-4.5) 01/06/23 16:04 Chloride 103 mmol/L (101-111) 01/06/23 16:04 Carbon Dioxide 26 mmol/L (21-32) 01/06/23 16:04 Anion Gap 10.0 (6-13) 01/06/23 16:04 BUN 27 mg/dL (6-20) H 01/06/23 16:04 Creatinine 1.1 mg/dL (0.6-1.3) 01/06/23 16:04 Estimated GFR (MDRD) 63 (>89) L 01/06/23 16:04 Glucose 147 mg/dL (74-104) H 01/06/23 16:04 Lactic Acid 0.9 mmol/L (0.5-2.2) 01/07/23 04:47 Calcium 9.5 mg/dL (8.5-10.3) 01/06/23 16:04 Magnesium 1.7 mg/dL (1.7-2.3) 01/06/23 16:04 Total Bilirubin 1.9 mg/dL (0.2-1.0) H 01/06/23 16:04 AST 98 IU/L (10-42) H 01/06/23 16:04 ALT 31 IU/L (10-60) 01/06/23 16:04 Alkaline Phosphatase 108 IU/L (42-121) 01/06/23 16:04 Total Creatine Kinase 1411 IU/L (30-223) H* 01/07/23 10:59 Troponin I High Sens 48.3 ng/L (2.3-19.7) H* 01/07/23 08:59 Total Protein 7.4 g/dL (6.4-8.9) 01/06/23 16:04 Albumin 4.3 g/dL (3.2-5.5) 01/06/23 16:04 Globulin 3.1 g/dL (2.1-4.2) 01/06/23 16:04 Albumin/Globulin Ratio 1.4 (1.0-2.2) 01/06/23 16:04 Urine Color YELLOW 01/06/23 17:05 Urine Clarity CLEAR (CLEAR) 01/06/23 17:05 Urine pH 5.0 PH (5.0-7.5) 01/06/23 17:05 Ur Specific [place] >=1.030 (1.002-1.030) H 01/06/23 17:05 Urine Protein 30 mg/dL (NEGATIVE) H 01/06/23 17:05 Urine Glucose (UA) NEGATIVE mg/dL (NEGATIVE) 01/06/23 17:05 Urine Ketones 15 mg/dL (NEGATIVE) H 01/06/23 17:05 Urine Occult Blood LARGE (NEGATIVE) H 01/06/23 17:05 Urine Nitrite NEGATIVE (NEGATIVE) 01/06/23 17:05 Urine Bilirubin NEGATIVE (NEGATIVE) 01/06/23 17:05 Urine Urobilinogen 0.2 (NORMAL) E.U./dL (NORMAL) 01/06/23 17:05 Ur Leukocyte Esterase NEGATIVE (NEGATIVE) 01/06/23 17:05 Urine RBC 6-10 /HPF (0-5) H 01/06/23 17:05 Urine WBC 0-3 /HPF (0-3) 01/06/23 17:05 Ur Squamous Epith Cells FEW Squamous (<= Few) 01/06/23 17:05 Urine Bacteria Rare /HPF (None Seen) 01/06/23 17:05 Urine Casts 0-2 Hyaline Casts /LPF 01/06/23 17:05 Ur Microscopic Review INDICATED 01/06/23 17:05 Urine Culture Comments NOT INDICATED 01/06/23 17:05 - Procedures Procedures: Procedures ENDO RECTUM POLYPECTOMY (07/08/13) REPLACEMENT OF LEFT LENS WITH SYNTH SUB, PERC APPROACH (11/30/17) REPLACEMENT OF RIGHT LENS WITH SYNTH SUB, PERC APPROACH (03/08/18) ABX Reporting Has patient been on IV antibiotics over the past 48 hours?: No
--- NOTE | 2023-01-07 13:29 | PHARMACY PROGRESS NOTE ---
- Best Possible Medication History Admit Date and Time: 01/06/231934 Processed by: Pharmacy Medication History completed: Yes Patient Interview: Completed Secondary Source(s): Pharmacy records, Insurance records Home medication list confirmed via call to [facility] staff at [place], [place] location and patient interview. As the person ultimately responsible for medication therapy, providers are able to order a medication from an existing home medication list in [facility] via the "Reconcile Routine" prior to Confirmation of that medication by endoscopy support specialist. Such practice is discouraged except when the physician, in their clinical judgment, deems that a medical need exists for a medication without regard to previous use.
[2023-01-07 14:12] LABS: ESTIMATED AVERAGE GLUCOSE 91 mg/dL (70-100); HEMOGLOBIN A1c% 4.8 % (4.27-6.07)
--- NOTE | 2023-01-07 21:44 | Ultrasound Report ---
PROCEDURE: Carotid Doppler Complete INDICATIONS: Syncope TECHNIQUE: Color and pulse Doppler interrogation was performed of both carotid systems, with image documentation and velocity measurements. COMPARISON: Carotid ultrasound 01/10/2014 FINDINGS: Right side: Brachial blood pressure: 145/84 mm Hg. Common carotid artery peak systolic velocity: 54 cm/sec. Internal carotid artery peak systolic velocity: 60 cm/sec. Internal carotid artery end diastolic velocity: 16 cm/sec. External carotid artery peak systolic velocity: 68 cm/sec. ICA/CCA peak systolic ratio: 1.1 . Russo scale imaging description: Moderate atherosclerotic plaque. Percent internal carotid artery stenosis: Less than 50 percent stenosis. Vertebral artery: Flow direction is antegrade. Left side: Brachial blood pressure: 134/73 mm Hg. Common carotid artery peak systolic velocity: 76 cm/sec. Internal carotid artery peak systolic velocity: 63 cm/sec. Internal carotid artery end diastolic velocity: 13 cm/sec. External carotid artery peak systolic velocity: 66 cm/sec. ICA/CCA peak systolic ratio: 0.8 . Russo scale imaging description: Moderate atherosclerotic plaque. Percent internal carotid artery stenosis: Less than 50 percent stenosis. Vertebral artery: Flow direction is antegrade. IMPRESSION: 1. In the right internal carotid artery, there is less than 50 percent stenosis based on peak systoli c velocity criteria. 2. In the left internal carotid artery, there is less than 50 percent stenosis based on peak systolic velocity criteria. 3. Antegrade blood flow within the right vertebral artery. 4. Antegrade blood flow within the left vertebral artery. The estimate of stenosis included in the report of the imaging study was calculated using the [facility]-end orsed standards of carotid artery stenosis. Reviewed by: Ten Mccormick MD on 01/07/2023 9:43 PM PDT Approved by: Ten Mccormick MD on 01/07/2023 9:43 PM PDT Station ID: [id number]
[2023-01-08] MEDS: SODIUM CHLORIDE 0.9% 1,000 ML IV SCH ×2 (00:24→11:10)
[2023-01-08 05:58] LABS: BASOPHILS % (AUTO) 0.4 %; EOSINOPHILS # (AUTO) 0.1 10^3/uL (0.0-0.7); EOSINOPHILS % (AUTO) 1.6 %; HGB - HEMOGLOBIN 12.9 g/dL (14.0-18.0); LYMPHOCYTES # (AUTO) 1.9 10^3/uL (1.5-3.5); LYMPHOCYTES % (AUTO) 28.3 %; MEAN CORPUSCULAR HEMOGLOBIN 33.3 pg (27.0-31.0); MEAN CORPUSCULAR HGB CONC 33.1 g/dL (32.0-36.0); MEAN CORPUSCULAR VOLUME 100.8 fL (80.0-94.0); MEAN PLATELET VOLUME 10.6 fL (7.4-11.4); MONOCYTES # (AUTO) 0.7 10^3/uL (0.0-1.0); MONOCYTES % (AUTO) 9.8 %; NEUTROPHILS % (AUTO) 59.5 %; PLT - PLATELET COUNT 150 10^3/uL (130-450); RED BLOOD COUNT 3.87 10^6/uL (4.70-6.10); RED CELL DISTRIBUTION WIDTH 13.8 % (12.0-15.0); WHITE BLOOD COUNT 6.8 x10^3/uL (4.8-10.8)
[2023-01-08 06:13] LABS: CALCIUM 8.2 mg/dL (8.5-10.3); CREATININE 0.9 mg/dL (0.6-1.3); MAGNESIUM 1.8 mg/dL (1.7-2.3); POTASSIUM 3.4 mmol/L (3.5-4.5)
[2023-01-08] MEDS: ACETAMINOPHEN 500 MG TABLET PO SCH ×2 (08:02→20:19)
[2023-01-08] MEDS: SODIUM CHLORIDE FLUSH 0.9% 10 ML SYRINGE IVP SCH ×2 (08:03→16:26)
[2023-01-08] MEDS: SERTRALINE 50 MG TABLET PO SCH (08:03)
[2023-01-08] MEDS: HEPARIN 5,000 UNIT/ML VIAL SUBQ SCH ×2 (08:03→20:16)
[2023-01-08] MEDS: PANTOPRAZOLE 40 MG TABLET PO SCH (08:03)
--- NOTE | 2023-01-08 15:01 | PROVIDER PROGRESS NOTE ---
Assessment/Plan - Problem List (1) Syncope and collapse Assessment/Plan: (1) Syncope and collapse Assessment/Plan: Pt presented with syncopal episode. No symptoms prior or after. Pt has had similar episodes in the past without evaluation -Telemetry -Check orthostatic BP,pulse and record -Serial tropinins -Echocardiogram ordered -Carotid duplex Which showed less than 50% stenosis based on peak systolic velocity criteria and right internal carotid artery. In the left internal carotid artery there is less than 50% stenosis. Antegrade blood flow within the right vertebral artery. Antegrade blood flow within the left vertebral artery. -Trending troponins and they are decreasing -Awaiting echocardiogram to be done (2) Rhabdomyolysis Qualifiers: Rhabdomyolysis type: traumatic Assessment/Plan: Patient was down for about 12 hours -ivf for rhabdo -CPK 2855 to 1938 to 1411 (3) Prerenal azotemia Assessment/Plan: Most likely secondary to Rhabdo -Monitor and avoid nephrotoxic agents (4) Normal pressure hydrocephalus Assessment/Plan: -Stable shunt per imaging (2) Rhabdomyolysis Qualifiers: Rhabdomyolysis type: traumatic - Current Meds Current Meds: Current Medications Generic Name Dose Route Start Last Admin Trade Name Freq PRN Reason Stop Dose Admin Acetaminophen 1,000 mg 01/06/23 21:00 01/08/23 08:02 Acetaminophen 500 Mg Tablet PO 1,000 mg BID JORDON Administration Heparin Sodium (Porcine) 5,000 unit 01/06/23 21:00 01/08/23 08:03 Heparin 5,000 Unit/Ml Vial SUBQ Not Given BID JORDON Sodium Chloride 1,000 mls @ 100 mls/hr 01/07/23 14:00 01/08/23 11:10 Normal Saline 0.9% IV 100 mls/hr .Q10H JORDON Administration Pantoprazole Sodium 40 mg 01/07/23 09:00 01/08/23 08:03 Pantoprazole 40 Mg Tablet PO 40 mg DAILY JORDON Administration Sertraline HCl 100 mg 01/07/23 09:00 01/08/23 08:03 Sertraline 50 Mg Tablet PO 100 mg DAILY JORDON Administration Sodium Chloride 10 ml 01/07/23 01:00 01/08/23 08:03 Sodium Chloride Flush 0.9% 10 Ml Syringe IVP 10 ml 0100,0900,1700 JORDON Administration - Lab Result Fish Bone Diagrams: 01/08/23 05:36 07/30/23 05:36 - Additional Planning My Orders: My Active Orders 01/07/23 14:00 Sodium Chloride 0.9% [Normal Saline 0.9%] 1,000 ml IV 100 mls/hr 01/08/23 11:44 Telemetry- [RC] Q4HR 01/09/23 05:00 CK- CREATINE KINASE [CHEM] DAILYLAB 01/09/23 09:00 TROPONIN I HIGH SENSITIVITY [CHEM] DAILY 01/10/23 05:00 CK- CREATINE KINASE [CHEM] DAILYLAB 01/10/23 09:00 TROPONIN I HIGH SENSITIVITY [CHEM] DAILY 01/11/23 09:00 TROPONIN I HIGH SENSITIVITY [CHEM] DAILY Subjective - Subjective Patient Reports: Resting Comfortably Objective Vital Signs: Vital Signs - 24 hr 01/07/23 01/07/23 01/08/23 16:00 23:58 08:00 Temperature 36.3 C L 37.2 C 36.3 C L Heart Rate [ 75 68 68 Brachial] Respiratory 18 18 18 Rate Blood Pressure 123/68 145/91 H [Left Brachial artery] Blood Pressure 127/76 [Right Brachial artery] O2 Saturation 93 93 93 01/08/23 12:53 Temperature 36.3 C L Heart Rate [ 68 Brachial] Respiratory 18 Rate Blood Pressure 145/91 H [Left Brachial artery] Blood Pressure [Right Brachial artery] O2 Saturation 98 Oxygen O2 Source Room air I&O (Last 24 Hrs): Intake and Output Totals x24h 01/06/23 01/07/23 01/08/23 23:59 23:59 23:59 Intake Total 1590 5205 1700 Balance 1590 5205 1700 General: Alert, Oriented x3, Cooperative HEENT: Atraumatic Cardiovascular: Regular rate, Normal S1, Normal S2 Respiratory: No respiratory distress, Breath sounds nml Abdomen: Normal bowel sounds, Soft Extremities: Other (trace BL pedal edema) Skin: No rashes - Results Results: Laboratory Results WBC 6.8 x10^3/uL (4.8-10.8) 01/08/23 05:36 RBC 3.87 10^6/uL (4.70-6.10) L 01/08/23 05:36 Hgb 12.9 g/dL (14.0-18.0) L 01/08/23 05:36 Hct 39.0 % (42.0-52.0) L 01/08/23 05:36 MCV 100.8 fL (80.0-94.0) H 01/08/23 05:36 MCH 33.3 pg (27.0-31.0) H 01/08/23 05:36 MCHC 33.1 g/dL (32.0-36.0) 01/08/23 05:36 RDW 13.8 % (12.0-15.0) 01/08/23 05:36 Plt Count 150 10^3/uL (130-450) 01/08/23 05:36 MPV 10.6 fL (7.4-11.4) 01/08/23 05:36 Neut # (Auto) 4.0 10^3/uL (1.5-6.6) 01/08/23 05:36 Lymph # (Auto) 1.9 10^3/uL (1.5-3.5) 01/08/23 05:36 [place] # (Auto) 0.7 10^3/uL (0.0-1.0) 01/08/23 05:36 Eos # (Auto) 0.1 10^3/uL (0.0-0.7) 01/08/23 05:36 Baso # (Auto) 0.0 10^3/uL (0.0-0.1) 01/08/23 05:36 Absolute Nucleated RBC 0.00 x10^3/uL 01/08/23 05:36 Total Counted 100 01/06/23 16:04 Band Neuts % (Manual) 4 % (0-10) 01/06/23 16:04 Abnorm Lymph % (Manual) 0 % 01/06/23 16:04 Nucleated RBC % 0.0 /100WBC 01/08/23 05:36 Neutrophils # (Manual) 13.6 10^3/uL (1.5-6.6) H 01/06/23 16:04 Lymphocytes # (Manual) 1.0 10^3/uL (1.5-3.5) L 01/06/23 16:04 Monocytes # (Manual) 1.5 10^3/uL (0.0-1.0) H 01/06/23 16:04 Eosinophils # (Manual) 0.0 10^3/uL (0-0.7) 01/06/23 16:04 Basophils # (Manual) 0.2 10^3/uL (0-0.1) H 01/06/23 16:04 Differential Comment MANUAL DIFFERENTIAL 01/06/23 16:04 Platelet Estimate NORMAL (130-450,000) (NORMAL) 01/06/23 16:04 Platelet Morphology NORMAL APPEARANCE (NORMAL) 01/06/23 16:04 RBC Morph Micro Appear NORMAL APPEARANCE (NORMAL) 01/06/23 16:04 PT 12.0 secs (9.9-12.6) 01/06/23 16:04 INR 1.1 (0.8-1.2) 01/06/23 16:04 Sodium 141 mmol/L (135-145) 01/08/23 05:36 Potassium 3.4 mmol/L (3.5-4.5) L 01/08/23 05:36 Chloride 114 mmol/L (101-111) H 01/08/23 05:36 Carbon Dioxide 25 mmol/L (21-32) 01/08/23 05:36 Anion Gap 2.0 (6-13) L 01/08/23 05:36 BUN 23 mg/dL (6-20) H 01/08/23 05:36 Creatinine 0.9 mg/dL (0.6-1.3) 01/08/23 05:36 Estimated GFR (MDRD) 80 (>89) L 01/08/23 05:36 Glucose 105 mg/dL (74-104) H 01/08/23 05:36 Estimat Average Glucose 91 mg/dL (70-100) 01/07/23 04:47 Hemoglobin A1c % 4.8 % (4.27-6.07) 01/07/23 04:47 Lactic Acid 0.9 mmol/L (0.5-2.2) 01/07/23 04:47 Calcium 8.2 mg/dL (8.5-10.3) L 01/08/23 05:36 Magnesium 1.8 mg/dL (1.7-2.3) 01/08/23 05:36 Total Bilirubin 1.9 mg/dL (0.2-1.0) H 01/06/23 16:04 AST 98 IU/L (10-42) H 01/06/23 16:04 ALT 31 IU/L (10-60) 01/06/23 16:04 Alkaline Phosphatase 108 IU/L (42-121) 01/06/23 16:04 Total Creatine Kinase 651 IU/L (30-223) H 01/08/23 05:36 Troponin I High Sens 31.5 ng/L (2.3-19.7) H* 01/08/23 05:36 Total Protein 7.4 g/dL (6.4-8.9) 01/06/23 16:04 Albumin 4.3 g/dL (3.2-5.5) 01/06/23 16:04 Globulin 3.1 g/dL (2.1-4.2) 01/06/23 16:04 Albumin/Globulin Ratio 1.4 (1.0-2.2) 01/06/23 16:04 Urine Color YELLOW 01/06/23 17:05 Urine Clarity CLEAR (CLEAR) 01/06/23 17:05 Urine pH 5.0 PH (5.0-7.5) 01/06/23 17:05 Ur Specific [place] >=1.030 (1.002-1.030) H 01/06/23 17:05 Urine Protein 30 mg/dL (NEGATIVE) H 01/06/23 17:05 Urine Glucose (UA) NEGATIVE mg/dL (NEGATIVE) 01/06/23 17:05 Urine Ketones 15 mg/dL (NEGATIVE) H 01/06/23 17:05 Urine Occult Blood LARGE (NEGATIVE) H 01/06/23 17:05 Urine Nitrite NEGATIVE (NEGATIVE) 01/06/23 17:05 Urine Bilirubin NEGATIVE (NEGATIVE) 01/06/23 17:05 Urine Urobilinogen 0.2 (NORMAL) E.U./dL (NORMAL) 01/06/23 17:05 Ur Leukocyte Esterase NEGATIVE (NEGATIVE) 01/06/23 17:05 Urine RBC 6-10 /HPF (0-5) H 01/06/23 17:05 Urine WBC 0-3 /HPF (0-3) 01/06/23 17:05 Ur Squamous Epith Cells FEW Squamous (<= Few) 01/06/23 17:05 Urine Bacteria Rare /HPF (None Seen) 01/06/23 17:05 Urine Casts 0-2 Hyaline Casts /LPF 01/06/23 17:05 Ur Microscopic Review INDICATED 01/06/23 17:05 Urine Culture Comments NOT INDICATED 01/06/23 17:05 - Procedures Procedures: Procedures ENDO RECTUM POLYPECTOMY (07/08/13) REPLACEMENT OF LEFT LENS WITH SYNTH SUB, PERC APPROACH (11/30/17) REPLACEMENT OF RIGHT LENS WITH SYNTH SUB, PERC APPROACH (03/08/18) ABX Reporting Has patient been on IV antibiotics over the past 48 hours?: No
[2023-01-08] MEDS: ACETAMINOPHEN 325 MG TABLET PO PRN ×2 (16:35→20:12)
[2023-01-09] MEDS: SODIUM CHLORIDE FLUSH 0.9% 10 ML SYRINGE IVP SCH ×3 (00:27→15:46)
[2023-01-09] MEDS: ACETAMINOPHEN 325 MG TABLET PO PRN (00:34)
[2023-01-09] MEDS: SODIUM CHLORIDE 0.9% 1,000 ML IV SCH ×3 (02:27→15:46)
[2023-01-09 06:16] LABS: BASOPHILS % (AUTO) 0.3 %; EOSINOPHILS # (AUTO) 0.2 10^3/uL (0.0-0.7); EOSINOPHILS % (AUTO) 2.6 %; HGB - HEMOGLOBIN 13.4 g/dL (14.0-18.0); LYMPHOCYTES # (AUTO) 1.4 10^3/uL (1.5-3.5); LYMPHOCYTES % (AUTO) 23.3 %; MEAN CORPUSCULAR HEMOGLOBIN 32.6 pg (27.0-31.0); MEAN CORPUSCULAR HGB CONC 31.9 g/dL (32.0-36.0); MEAN CORPUSCULAR VOLUME 102.2 fL (80.0-94.0); MEAN PLATELET VOLUME 10.8 fL (7.4-11.4); MONOCYTES # (AUTO) 0.6 10^3/uL (0.0-1.0); MONOCYTES % (AUTO) 10.2 %; NEUTROPHILS # (AUTO) 3.9 10^3/uL (1.5-6.6); PLT - PLATELET COUNT 163 10^3/uL (130-450); RED BLOOD COUNT 4.11 10^6/uL (4.70-6.10); RED CELL DISTRIBUTION WIDTH 13.7 % (12.0-15.0); WHITE BLOOD COUNT 6.2 x10^3/uL (4.8-10.8)
[2023-01-09 06:28] LABS: CALCIUM 8.6 mg/dL (8.5-10.3); CREATININE 0.9 mg/dL (0.6-1.3); MAGNESIUM 1.7 mg/dL (1.7-2.3); POTASSIUM 3.4 mmol/L (3.5-4.5)
[2023-01-09] MEDS: ACETAMINOPHEN 500 MG TABLET PO SCH ×2 (08:16→21:18)
[2023-01-09] MEDS: PANTOPRAZOLE 40 MG TABLET PO SCH (08:17)
[2023-01-09] MEDS: SERTRALINE 50 MG TABLET PO SCH (08:18)
[2023-01-09] MEDS: HEPARIN 5,000 UNIT/ML VIAL SUBQ SCH ×2 (08:19→21:17)
[2023-01-09] MEDS ORDERED: POTASSIUM CHLORIDE 20 MEQ TABLET PO ONE (09:31)
--- NOTE | 2023-01-09 15:15 | PROVIDER PROGRESS NOTE ---
Assessment/Plan - Problem List (1) Syncope and collapse Assessment/Plan: Assessment/Plan: Pt presented with syncopal episode. No symptoms prior or after. Pt has had similar episodes in the past without evaluation -Telemetry -Check orthostatic BP,pulse and record -Serial tropinins -Echocardiogram ordered -Carotid duplex Which showed less than 50% stenosis based on peak systolic velocity criteria and right internal carotid artery. In the left internal carotid artery there is less than 50% stenosis. Antegrade blood flow within the right vertebral artery. Antegrade blood flow within the left vertebral artery. -Trending troponins and they are decreasing -Awaiting echocardiogram to be done telemetry shows controlled rate a fib.Not candidate for anticoagulation given hx frequent falls (2) Rhabdomyolysis Qualifiers: Rhabdomyolysis type: traumatic Assessment/Plan: Patient was down for about 12 hours -ivf for rhabdo -CPK 2855 to 1938 to 1411 to319 (3) Prerenal azotemia Assessment/Plan: Most likely secondary to Rhabdo -Monitor and avoid nephrotoxic agents -01/09- gfr=80,bun=16,cr=0.9 (4) Normal pressure hydrocephalus Assessment/Plan: -Stable shunt per imaging (2) Rhabdomyolysis Qualifiers: Rhabdomyolysis type: traumatic - Current Meds Current Meds: Current Medications Generic Name Dose Route Start Last Admin Trade Name Freq PRN Reason Stop Dose Admin Acetaminophen 1,000 mg 01/06/23 21:00 01/09/23 08:16 Acetaminophen 500 Mg Tablet PO 1,000 mg BID JORDON Administration Acetaminophen 650 mg 01/06/23 20:50 01/09/23 00:34 Acetaminophen 325 Mg Tablet PO 650 mg Q6H PRN Administration Mild Pain or Fever>38C(100.4F) Heparin Sodium (Porcine) 5,000 unit 01/06/23 21:00 01/09/23 08:19 Heparin 5,000 Unit/Ml Vial SUBQ 5,000 unit BID JORDON Administration Sodium Chloride 1,000 mls @ 100 mls/hr 01/07/23 14:00 01/09/23 12:30 Normal Saline 0.9% IV Infused .Q10H JORDON Infusion Pantoprazole Sodium 40 mg 01/07/23 09:00 01/09/23 08:17 Pantoprazole 40 Mg Tablet PO 40 mg DAILY JORDON Administration Sertraline HCl 100 mg 01/07/23 09:00 01/09/23 08:18 Sertraline 50 Mg Tablet PO 100 mg DAILY JORDON Administration Sodium Chloride 10 ml 01/07/23 01:00 01/09/23 08:20 Sodium Chloride Flush 0.9% 10 Ml Syringe IVP Not Given 0100,0900,1700 JORDON - Lab Result Fish Bone Diagrams: 01/09/23 05:48 01/09/23 05:48 - Additional Planning My Orders: My Active Orders 01/10/23 05:00 CK- CREATINE KINASE [CHEM] DAILYLAB 01/10/23 09:00 TROPONIN I HIGH SENSITIVITY [CHEM] DAILY 01/11/23 09:00 TROPONIN I HIGH SENSITIVITY [CHEM] DAILY Subjective - Subjective Patient Reports: Feeling Better, Resting Comfortably Objective Vital Signs: Vital Signs - 24 hr 01/08/23 01/08/23 01/09/23 16:05 23:59 04:13 Temperature 36.8 C 36.8 C Heart Rate [ 65 61 84 Brachial] Respiratory 14 17 18 Rate Blood Pressure 151/96 H 156/84 H [Left Brachial artery] Blood Pressure 154/100 H [Right Brachial artery] O2 Saturation 97 92 96 01/09/23 07:32 Temperature 36.6 C Heart Rate [ 71 Brachial] Respiratory 20 Rate Blood Pressure [Left Brachial artery] Blood Pressure 132/77 H [Right Brachial artery] O2 Saturation 94 Oxygen O2 Source Room air I&O (Last 24 Hrs): Intake and Output Totals x24h 01/07/23 01/08/23 01/09/23 23:59 23:59 23:59 Intake Total 5205 3400 2432 Output Total 550 Balance 5205 3400 1882 General: Alert, Oriented x3, Cooperative HEENT: Atraumatic Neck: Supple Neuro: Alert, Non Focal Cardiovascular: Regular rate, Normal S1, Normal S2 Respiratory: Breath sounds nml Abdomen: Normal bowel sounds, Soft Extremities: Other (trace BL pedal edema) Skin: No rashes - Results Results: Laboratory Results WBC 6.2 x10^3/uL (4.8-10.8) 01/09/23 05:48 RBC 4.11 10^6/uL (4.70-6.10) L 01/09/23 05:48 Hgb 13.4 g/dL (14.0-18.0) L 01/09/23 05:48 Hct 42.0 % (42.0-52.0) 01/09/23 05:48 MCV 102.2 fL (80.0-94.0) H 01/09/23 05:48 MCH 32.6 pg (27.0-31.0) H 01/09/23 05:48 MCHC 31.9 g/dL (32.0-36.0) L 01/09/23 05:48 RDW 13.7 % (12.0-15.0) 01/09/23 05:48 Plt Count 163 10^3/uL (130-450) 01/09/23 05:48 MPV 10.8 fL (7.4-11.4) 01/09/23 05:48 Neut # (Auto) 3.9 10^3/uL (1.5-6.6) 01/09/23 05:48 Lymph # (Auto) 1.4 10^3/uL (1.5-3.5) L 01/09/23 05:48 [place] # (Auto) 0.6 10^3/uL (0.0-1.0) 01/09/23 05:48 Eos # (Auto) 0.2 10^3/uL (0.0-0.7) 01/09/23 05:48 Baso # (Auto) 0.0 10^3/uL (0.0-0.1) 01/09/23 05:48 Absolute Nucleated RBC 0.00 x10^3/uL 01/09/23 05:48 Total Counted 100 01/06/23 16:04 Band Neuts % (Manual) 4 % (0-10) 01/06/23 16:04 Abnorm Lymph % (Manual) 0 % 01/06/23 16:04 Nucleated RBC % 0.0 /100WBC 01/09/23 05:48 Neutrophils # (Manual) 13.6 10^3/uL (1.5-6.6) H 01/06/23 16:04 Lymphocytes # (Manual) 1.0 10^3/uL (1.5-3.5) L 01/06/23 16:04 Monocytes # (Manual) 1.5 10^3/uL (0.0-1.0) H 01/06/23 16:04 Eosinophils # (Manual) 0.0 10^3/uL (0-0.7) 01/06/23 16:04 Basophils # (Manual) 0.2 10^3/uL (0-0.1) H 01/06/23 16:04 Differential Comment MANUAL DIFFERENTIAL 01/06/23 16:04 Platelet Estimate NORMAL (130-450,000) (NORMAL) 01/06/23 16:04 Platelet Morphology NORMAL APPEARANCE (NORMAL) 01/06/23 16:04 RBC Morph Micro Appear NORMAL APPEARANCE (NORMAL) 01/06/23 16:04 PT 12.0 secs (9.9-12.6) 01/06/23 16:04 INR 1.1 (0.8-1.2) 01/06/23 16:04 Sodium 142 mmol/L (135-145) 01/09/23 05:48 Potassium 3.4 mmol/L (3.5-4.5) L 01/09/23 05:48 Chloride 112 mmol/L (101-111) H 01/09/23 05:48 Carbon Dioxide 25 mmol/L (21-32) 01/09/23 05:48 Anion Gap 5.0 (6-13) L 01/09/23 05:48 BUN 16 mg/dL (6-20) 01/09/23 05:48 Creatinine 0.9 mg/dL (0.6-1.3) 01/09/23 05:48 Estimated GFR (MDRD) 80 (>89) L 01/09/23 05:48 Glucose 112 mg/dL (74-104) H 01/09/23 05:48 Estimat Average Glucose 91 mg/dL (70-100) 01/07/23 04:47 Hemoglobin A1c % 4.8 % (4.27-6.07) 01/07/23 04:47 Lactic Acid 0.9 mmol/L (0.5-2.2) 01/07/23 04:47 Calcium 8.6 mg/dL (8.5-10.3) 01/09/23 05:48 Magnesium 1.7 mg/dL (1.7-2.3) 01/09/23 05:48 Total Bilirubin 1.9 mg/dL (0.2-1.0) H 01/06/23 16:04 AST 98 IU/L (10-42) H 01/06/23 16:04 ALT 31 IU/L (10-60) 01/06/23 16:04 Alkaline Phosphatase 108 IU/L (42-121) 01/06/23 16:04 Total Creatine Kinase 319 IU/L (30-223) H 01/09/23 05:48 Troponin I High Sens 20.1 ng/L (2.3-19.7) H* 01/09/23 05:48 Total Protein 7.4 g/dL (6.4-8.9) 01/06/23 16:04 Albumin 4.3 g/dL (3.2-5.5) 01/06/23 16:04 Globulin 3.1 g/dL (2.1-4.2) 01/06/23 16:04 Albumin/Globulin Ratio 1.4 (1.0-2.2) 01/06/23 16:04 Urine Color YELLOW 01/06/23 17:05 Urine Clarity CLEAR (CLEAR) 01/06/23 17:05 Urine pH 5.0 PH (5.0-7.5) 01/06/23 17:05 Ur Specific [place] >=1.030 (1.002-1.030) H 01/06/23 17:05 Urine Protein 30 mg/dL (NEGATIVE) H 01/06/23 17:05 Urine Glucose (UA) NEGATIVE mg/dL (NEGATIVE) 01/06/23 17:05 Urine Ketones 15 mg/dL (NEGATIVE) H 01/06/23 17:05 Urine Occult Blood LARGE (NEGATIVE) H 01/06/23 17:05 Urine Nitrite NEGATIVE (NEGATIVE) 01/06/23 17:05 Urine Bilirubin NEGATIVE (NEGATIVE) 01/06/23 17:05 Urine Urobilinogen 0.2 (NORMAL) E.U./dL (NORMAL) 01/06/23 17:05 Ur Leukocyte Esterase NEGATIVE (NEGATIVE) 01/06/23 17:05 Urine RBC 6-10 /HPF (0-5) H 01/06/23 17:05 Urine WBC 0-3 /HPF (0-3) 01/06/23 17:05 Ur Squamous Epith Cells FEW Squamous (<= Few) 01/06/23 17:05 Urine Bacteria Rare /HPF (None Seen) 01/06/23 17:05 Urine Casts 0-2 Hyaline Casts /LPF 01/06/23 17:05 Ur Microscopic Review INDICATED 01/06/23 17:05 Urine Culture Comments NOT INDICATED 01/06/23 17:05 - Procedures Procedures: Procedures ENDO RECTUM POLYPECTOMY (07/08/13) REPLACEMENT OF LEFT LENS WITH SYNTH SUB, PERC APPROACH (11/30/17) REPLACEMENT OF RIGHT LENS WITH SYNTH SUB, PERC APPROACH (03/08/18) ABX Reporting Has patient been on IV antibiotics over the past 48 hours?: No
[2023-01-09] MEDS: ASPIRIN EC 81 MG TABLET PO SCH (16:03)
[2023-01-10] MEDS: SODIUM CHLORIDE FLUSH 0.9% 10 ML SYRINGE IVP SCH ×2 (00:45→08:47)
[2023-01-10] MEDS: ACETAMINOPHEN 325 MG TABLET PO PRN ×2 (01:28→05:46)
[2023-01-10] MEDS: SODIUM CHLORIDE 0.9% 1,000 ML IV SCH (05:46)
[2023-01-10] MEDS: SERTRALINE 50 MG TABLET PO SCH (08:46)
[2023-01-10] MEDS: ASPIRIN EC 81 MG TABLET PO SCH (08:46)
[2023-01-10] MEDS: PANTOPRAZOLE 40 MG TABLET PO SCH (08:46)
[2023-01-10] MEDS: ACETAMINOPHEN 500 MG TABLET PO SCH (08:46)
[2023-01-10] MEDS: HEPARIN 5,000 UNIT/ML VIAL SUBQ SCH (08:47)
[2023-01-10 09:17] LABS: CALCIUM 8.8 mg/dL (8.5-10.3); CREATININE 0.9 mg/dL (0.6-1.3); MAGNESIUM 1.7 mg/dL (1.7-2.3); POTASSIUM 3.6 mmol/L (3.5-4.5)
--- NOTE | 2023-01-10 12:36 | Discharge Plan ---
Discharge Plan for SNF / [facility] - Discharge Plan And Transition Orders Problem Reviewed?: Yes Disposition: 03 SNF DC/Xfer Condition: Good Allergies and Adverse Reactions: Allergies Allergy/AdvReac Type Severity Reaction Status Date / Time venom-honey bee Allergy Severe Respiratory Verified 01/06/23 15:39 [bee venom (honey bee)] and swelling iodine Allergy Intermediate Hives Verified 01/06/23 15:39 ciprofloxacin [From Cipro] Allergy Mild Rash Verified 01/06/23 15:39 ciprofloxacin HCl * Allergy Mild Rash Verified 01/06/23 15:39 [From Cipro] DYLON Inhibitors Allergy cough Verified 01/06/23 15:39 Sulfa (Sulfonamide AdvReac Mild Nausea Verified 01/06/23 15:39 Antibiotics) yellow jackets Allergy Anaphylaxis Uncoded 01/06/23 15:39 Health Concerns: This is an elderly gentleman who lives alone. He has a history of normal pressure hydrocephalus, and "blackouts". He does not have a shunt. He has been having Increasing frequency of falls recently. No clear etiology. He does have atrial fibrillation but is not on any rate lowering drugs. Because of his history of falls he is not on anticoagulation. With his most recent fall, he fell on his porch. Laid there overnight. Was found down by a neighbor and brought into the hospital where he was found to have rhabdomyolysis, acute renal insufficiency. Chronic atrial fibrillation with sinus pauses of greater than 2 seconds sometimes. His acute renal insufficiency resolved with hydration. Rhabdomyolysis resolved with initial CPK 3339 and was 162 at discharge. He currently has significant deconditioning. at home he is usually ambulatory, uses a walker. Is independent with transfers and independent with activities of daily living. He currently cannot do those things. He has been seen by Occupational Therapy and physical therapy. He is pleasant, able to answer questions, has decreased attention span, and still has quite a bit of musculoskeletal pain from being on the porch. He follows verbal cues. He needs light physical assist and cueing to complete his majority of functional mobility and ADL completions. As such we are recommending physical therapy and Occupational Therapy to care home facility until he can return home to independent living. The plan is for his friends and neighbors to take a greater role. Plan of Treatment: He should be followed up by his primary care provider. If possible he should have an event monitor while at the [facility]. Please be evaluated for need for pacemaker Care Goals: To return home to independent living with help from friends and neighbors Assessment: Patient is alert, cooperative, able to follow instructions - SNF / HALFWAY Transition Orders Admit to (Facility): [facility] Under the care of (Name): Primary care provider is an Rob URENA Discharge Diagnosis: 1. Syncope and collapse 2. Rhabdomyolysis 3. Prerenal azotemia 4. Normal pressure hydrocephalus 5. Sick sinus syndrome with 2.1-second pauses 5. Chronic atrial fibrillation 6. Deconditioning after illness Medicare Certification Statement: I certify that Post Hospital care home care is medically necessary on a continuing basis for any of the conditions for which she/he is receiving care during hospitalization. Notify PCP of admission and forward orders to primary provider for signature. Weight on admission and: Weekly Other Notification Orders: Call PCP immediately if patient develops dyspnea, chest pain/tightness or edema. House Bowel Program: Yes Additional Bowel Program Orders: If no BM after 2 days, nurse may give M.O.M. 30ml PO PRN and/or ducolax Supp 1 AR and/or MARIAN 250mg P.O., and/or senna 1-2 tabs PO. On day 3 nurse may give repeat above order until residents constipation is resolved. Annual Influenza Vaccine (between Feb 10 and September 09): Yes Two-step PPD per [facility] [id number] or approved exception documents: Yes Treatments & Other Orders: Scratches and abrasions are being treated with bacitracin ointment on his arms and legs. Bottom is being treated with a barrier cream of zinc. Medication Orders: PLEASE REFER TO THE DISCHARGE MEDICATION LIST. Insulin Orders?: No - Diet Type: Geriatric Texture: Regular Liquids: Thin May have monthly special meal: Yes - Therapies | Activity Therapy: Evaluation | Treat if indicated: PT, OT, Swallowing / ST Rehabilitation Potential: Return to independent living Activity: Activity as Tolerated Weight Bearing: Full Weight Assistance Devices: Walker Follow Up: MD rob for event monitor and pacer evaluation
--- NOTE | 2023-01-10 12:51 | DISCHARGE SUMMARY ---
"Discharge Summary Admit Date: 01/06/23 Discharge Date: 01/10/23 Discharging Provider: Betty Miles MD Primary Care Provider: Nicolasa Pierson MD Code Status: Do Not Attempt Resuscitation Condition at Discharge: Good Discharge Disposition: 03 SNF DC/Xfer - DIAGNOSES Discharge Diagnoses with Status of Each Condition: 1. Syncope and collapse 2. Rhabdomyolysis 3. Prerenal azotemia 4. Normal pressure hydrocephalus 5. Sick sinus syndrome with 2.1-second pauses 5. Chronic atrial fibrillation 6. 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 Pt had frequent falls prior to his shunt placement. He is no longer falling in that way now. He now c/o frequent Syncopal episodes. He is not sure how long he has been having this episodes, but they have been going on for >1 month. He estimates that he has Syncope/LOC about 3-4x/week. He will be standing, then suddenly pass out. He will have LOC for about 15-20 minutes, usually unwitnessed. No dizziness prior to Syncope. Pt has not been checking his BPs, though he does have a BP monitor. Last night, pt was feeling achey. He took some Tylenol. Then, he went outside to put his tools away. He turned back to the house, then felt himself beginning to fall and passed out. When he woke up, he felt sore all over, including his head, but especially his R hip. He felt weak. He tried to crawl to his porch steps b/c he did not want to get stuck outside, but he could not do it. He finally gave up and lie on the ground all night long, about 12 hours. At first, it was pleasant. Then, he had urinary incontinence into his diaper. He was wet and the weather turned colder. This AM, friend found him and called EMS. Pt denies CP/SOB/F/C/Dizziness. He has pain in his post head, his back and his R hip. He lives alone and his good friend has been talking to him about moving to an SENIOR LIVING. Pt is willing to consider this now after this experience. In the ER, BP 156/104, SpO2 86% RA, 93% 2L NC O2, WBC 16.2, Glc 147, CK 3339, AST 98, LA 2.6, U/A: +bld, GFR 63. EKG: NSR at 75 bpm, +PVCs, no STTw changes Hip/Pelvis Xray: NAD Abdo/Pelvis CT: DJD, NAD Head CT: no evidence of shunt malfunction, NAD Cspine CT: DJD, NAD Chest CT: NAD Pt was given Dilaudid, IVF 1L then 150 ml/hr in the ER. - Past Medical History Cardiovascular: reports: Hypertension, Arrhythmia Respiratory: reports: Sleep apnea (does not use cpap) Neuro: reports: None Endocrine/Autoimmune: reports: None GI: reports: GERD (controlled with diet.) : reports: Incontinence HEENT: reports: Chronic vision loss, Chronic hearing loss, Other Psych: reports: Depression Musculoskeletal: reports: None Derm: reports: Herpes zoster, Other MRSA Hx?: No - Past Surgical History General: reports: Colonoscopy Neuro: reports: FIRE CHIEF'S AIDE shunt HEENT: reports: Cataracts, Tonsil/Adenoidectomy - CONSULTS | PROCEDURES Procedures: Hip and pelvis x-ray on right hip without any acute bony abnormality. Chest CT has no significant sequela of acute trauma in the chest. No acute pulmonary process. Mild cardiomegaly. 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 Cervical spine CT without acute fracture or dislocation, severe cervical spondylosis Head CT without evidence of shunt malfunction. No hydrocephalus. No acute intracranial process identified. Age-appropriate volume loss and small vessel ischemic changes. Abdomen/pelvis CT without evidence of significant sequela of acute trauma in the abdomen and pelvis. Diverticulosis. Lumbar degenerative changes with canal stenosis and significant bilateral foraminal narrowing at L4-5. Carotid Dopplers have less than 50% stenosis based on peak systolic velocity criteria in both the right internal and left internal carotid arteries. - HOSPITAL COURSE Hospital Course: (1) Syncope and collapse Orthostatic blood pressure checks were done frequently. On the day of discharge supine blood pressure 144/82, sitting blood pressure 134/85, standing blood pressure 128/82. Pulse was 65, then 63, then 79 respectively. Echo was ordered but could not be done before the patient was discharged since information technology director was not available. Carotid Dopplers were negative for severe stenosis. Telemetry did not have any new arrhythmias. He has chronic atrial fibrillation. He is not a candidate for anticoagulation because of his frequent falls.. Serial troponins were negative. telemetry shows controlled rate a fib. Not candidate for anticoagulation given hx frequent falls (2) Rhabdomyolysis Qualifiers: Rhabdomyolysis type: traumatic Assessment/Plan: He was down for about 12 hours. Given IV fluids for his rhabdo. CPK started at 2855 and was 162 at the time of discharge. (3) Prerenal azotemia Assessment/Plan: BUN admission was 27. It appears that his baseline is in the 20s. However at the time of discharge BUN had gone down to 15 with hydration. Creatinine baseline is 0.9. On admission he was 1.1 and was back to 0.9 at discharge. (4) Normal pressure hydrocephalus Assessment/Plan: -Stable shunt per imaging It was noted on tele that his chronic atrial fibrillation was associated with sinus pauses of greater than 2 seconds sometimes. He currently has significant deconditioning. At home he is usually ambulatory, uses a walker. Is independent with transfers and independent with activities of daily living. He currently cannot do those things. He has been seen by Occupational Therapy and physical therapy. He is pleasant, able to answer questions, has decreased attention span, and still has quite a bit of musculoskeletal pain from being on the porch. He follows verbal cues. He needs light physical assist and cueing to complete his majority of functional mobility and ADL completions. As such we are recommending physical therapy and Occupational Therapy to residential facility until he can return home to independent living. The plan is for his friends and neighbors to take a greater role after he returns to home so that he can avoid permanent placement. The neighborhood (per social work) will rally to keep him home for as long as possible and will be making arrangments to check on him daily when he returns. Plan of Treatment: He should be followed up by his primary care provider after discharge from the SNF. If possible he should have an event monitor while at the [facility]. Please be evaluated for need for pacemaker At discharge temperature was 36.9. Heart rate 65. Blood pressure 116/92. Respirations 18. 97% on room air. He is 5 foot 10 inches tall, weighing 86 kg. Delightful elderly gentleman, vague affect. Although he is oriented to person place and time and situation, he is easily forgetful. But easily prompted. Neck is supple with no JVD or bruits. Lungs have completely normal breath sounds. No increased respiratory effort with walking or talking. Irregular rate and rhythm. Systolic ejection murmur heard. Abdomen is soft, nontender with no fluid wave or organomegaly. He is a two-person assist to get him out of bed and walk in the room with a walker. Last bowel movement was January 10. He is incontinent of urine and uses a brief or a pad. He has 1+ edema. Discharged in stable condition This document was made in part using voice recognition software. While efforts are made to proofread this document, sound alike and grammatical errors may occur. - ALLERGIES Allergies/Adverse Reactions: Allergies Allergy/AdvReac Type Severity Reaction Status Date / Time venom-honey bee Allergy Severe Respiratory Verified 01/06/23 15:39 [bee venom (honey bee)] and swelling iodine Allergy Intermediate Hives Verified 01/06/23 15:39 ciprofloxacin [From Cipro] Allergy Mild Rash Verified 01/06/23 15:39 ciprofloxacin HCl * Allergy Mild Rash Verified 01/06/23 15:39 [From Cipro] DYLON Inhibitors Allergy cough Verified 01/06/23 15:39 Sulfa (Sulfonamide AdvReac Mild Nausea Verified 01/06/23 15:39 Antibiotics) yellow jackets Allergy Anaphylaxis Uncoded 01/06/23 15:39 - MEDICATIONS Home Medications: Ambulatory Orders Medication Instructions Recorded Confirmed amLODIPine [Norvasc] 2.5 mg PO DAILY 11/30/17 01/06/23 Acetaminophen [Acetaminophen Extra 1,000 mg PO BID #0 01/10/23 01/06/23 Strength] Acetaminophen [Tylenol] 650 mg PO Q6H PRN tab 01/10/23 Aspirin EC [Ecotrin] 81 mg PO DAILYWM #1 tab 01/10/23 Bacitracin Zinc Oint [Bacitracin] 1 packet TOP PRN PRN packet 01/10/23 Omeprazole 20 mg PO DAILY #0 01/10/23 01/06/23 Sertraline [Zoloft] 150 mg PO DAILY #0 01/10/23 01/07/23 Zinc Oxide 20% Oint [Zinc Oxide] 1 applic TOP PRN PRN each 01/10/23 - LABS Result Diagrams: 01/09/23 05:48 01/10/23 08:57"
[2023-01-10 17:07] VITALS: BP 116/92
== END 2023-01-10 16:10 | DRG 312 ==
LOC: EDUNIT# → ED 15:35 → MS2 19:35
PROVIDERS: ADMIT Internal Medicine; ATTEND Specialist
DX: R55 Syncope and collapse (principal); M62.82 Rhabdomyolysis; S70.01XA Contusion of right hip, initial encounter; W19.XXXA Unspecified fall, initial encounter; G91.2 (Idiopathic) normal pressure hydrocephalus; N17.9 Acute kidney failure, unspecified; I48.20 Chronic atrial fibrillation, unspecified; I10 Essential (primary) hypertension; K21.9 Gastro-esophageal reflux disease without esophagitis; F32.A Depression, unspecified; D72.829 Elevated white blood cell count, unspecified; R09.02 Hypoxemia; I49.9 Cardiac arrhythmia, unspecified; G47.30 Sleep apnea, unspecified; M25.551 Pain in right hip; I49.5 Sick sinus syndrome; G47.33 Obstructive sleep apnea (adult) (pediatric); H54.7 Unspecified visual loss; H91.90 Unspecified hearing loss, unspecified ear; R32 Unspecified urinary incontinence; R51.9 Headache, unspecified; R53.1 Weakness; R73.9 Hyperglycemia, unspecified; Z60.9 Problem related to social environment, unspecified; Z79.899 Other long term (current) drug therapy; Z85.46 Personal history of malignant neoplasm of prostate; Z98.2 Presence of cerebrospinal fluid drainage device
CPT/HCPCS: 36415; 70450; 71260; 72125; 73502; 74177; 80048; 80053; 81001; 82550; 83036; 83605; 83735; 84484; 85025; 85610; 93005; 93880; 96374; 97162; 97165; 97530; 99285; A9270; J1170; Q9967; 81003; 87086; 87633

== ENCOUNTER 2023-02-23 16:39 | Outpatient (CLI) | payer MEDICARE, BC | END 2023-02-23 23:59 | disposition left against medical advice (07) | LOC: EMS 16:39 | DX: I10 Essential (primary) hypertension (principal); F32.A Depression, unspecified; R94.31 Abnormal electrocardiogram [ECG] [EKG] ==

== ENCOUNTER 2023-10-07 22:16 | Outpatient (CLI) | payer MEDICARE, BC | END 2023-10-07 23:59 | disposition critical access hospital (66) | LOC: EMS 22:16 | DX: R10.10 Upper abdominal pain, unspecified (principal); R14.0 Abdominal distension (gaseous); M54.9 Dorsalgia, unspecified | CPT/HCPCS: A0425; A0429 ==

== ENCOUNTER 2023-10-07 22:21 | Emergency (ER) | payer MEDICARE, BC ==
[2023-10-07 22:44] LABS: BASOPHILS % (AUTO) 0.2 %; EOSINOPHILS # (AUTO) 0.1 10^3/uL (0.0-0.7); EOSINOPHILS % (AUTO) 0.6 %; HCT - HEMATOCRIT 43.6 % (42.0-52.0); HGB - HEMOGLOBIN 14.1 g/dL (14.0-18.0); LYMPHOCYTES # (AUTO) 1.8 10^3/uL (1.5-3.5); LYMPHOCYTES % (AUTO) 20.9 %; MEAN CORPUSCULAR HEMOGLOBIN 33.2 pg (27.0-31.0); MEAN CORPUSCULAR HGB CONC 32.3 g/dL (32.0-36.0); MEAN CORPUSCULAR VOLUME 102.6 fL (80.0-94.0); MEAN PLATELET VOLUME 10.5 fL (7.4-11.4); MONOCYTES # (AUTO) 0.6 10^3/uL (0.0-1.0); MONOCYTES % (AUTO) 6.4 %; NEUTROPHILS # (AUTO) 6.3 10^3/uL (1.5-6.6); NEUTROPHILS % (AUTO) 71.4 %; PLT - PLATELET COUNT 156 10^3/uL (130-450); RED BLOOD COUNT 4.25 10^6/uL (4.70-6.10); RED CELL DISTRIBUTION WIDTH 13.6 % (12.0-15.0); WHITE BLOOD COUNT 8.8 x10^3/uL (4.8-10.8)
[2023-10-07 23:12] LABS: ALBUMIN 4.4 g/dL (3.2-5.5); ALBUMIN/GLOBULIN RATIO 1.8 (1.0-2.2); BILIRUBIN,TOTAL 0.9 mg/dL (0.2-1.0); CALCIUM 9.5 mg/dL (8.5-10.3); CREATININE 1.2 mg/dL (0.6-1.3); POTASSIUM 3.7 mmol/L (3.5-4.5); TOTAL PROTEIN 6.9 g/dL (6.4-8.9)
--- NOTE | 2023-10-07 23:51 | ED Physician Documentation ---
PD HPI ABD PAIN - Stated complaint Stated Complaint: ABD PAIN, NAUSEA, DISTENDED ABD - Chief complaint Chief Complaint: Abd Pain - History obtained from History obtained from: Patient - Additional information Additional information: HPI from patient. Patient complains of generalized abdominal pain radiating to his back, rapid onset at approximately 8:30 PM tonight while at home at rest. There are no exacerbating nor ameliorating factors. He denies nausea, vomiting. He denies history of similar symptoms. Denies diarrhea; feels like he might be constipated. 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 Review of Systems Constitutional: denies: Fever, Chills, Sweats Cardiac: denies: Chest pain / pressure, Palpitations Respiratory: denies: Dyspnea GI: reports: Abdominal Pain, Abdominal Swelling, Constipation. denies: Nausea, Vomiting, Diarrhea : denies: Dysuria, Frequency PD PAST MEDICAL HISTORY - Past Medical History Cardiovascular: Hypertension, Arrhythmia Respiratory: Sleep apnea Neuro: None, Fainting, Other Endocrine/Autoimmune: None GI: GERD : Incontinence HEENT: Chronic vision loss, Chronic hearing loss, Other Psych: Depression Musculoskeletal: None Derm: Herpes zoster, Other - Past Surgical History Past Surgical History: Yes General: Colonoscopy Neuro: CUSTOM B[employer]KER shunt HEENT: Cataracts, Tonsil/Adenoidectomy - Present Medications Home Medications: Ambulatory Orders Medication Instructions Recorded Confirmed Acetaminophen [Acetaminophen Extra 1,000 mg PO BID #0 01/10/23 10/08/23 Strength] Omeprazole 20 mg PO DAILY #0 01/10/23 10/08/23 Sertraline [Zoloft] 150 mg PO DAILY #0 01/10/23 10/08/23 Atorvastatin [Lipitor] 10 mg PO DAILY 10/08/23 10/08/23 Losartan [Cozaar] 50 mg PO DAILY 10/08/23 10/08/23 - Allergies Allergies/Adverse Reactions: Allergies Allergy/AdvReac Type Severity Reaction Status Date / Time venom-honey bee Allergy Severe Respiratory Verified 10/07/23 22:35 [bee venom (honey bee)] and swelling iodine Allergy Intermediate Hives Verified 10/07/23 22:35 ciprofloxacin [From Cipro] Allergy Mild Rash Verified 10/07/23 22:35 ciprofloxacin HCl * Allergy Mild Rash Verified 10/07/23 22:35 [From Cipro] DYLON Inhibitors Allergy cough Verified 10/07/23 22:35 Sulfa (Sulfonamide AdvReac Mild Nausea Verified 10/07/23 22:35 Antibiotics) yellow jackets Allergy Anaphylaxis Uncoded 10/07/23 22:35 - Social History Does the pt smoke?: No Smoking Status: Never smoker Does the pt drink ETOH?: No Does the pt have substance abuse?: No - Immunizations Immunizations are current?: Yes Immunizations: TDAP >10years/unknown - POLST Patient has POLST: No PD ED PE NORMAL - Vitals Vital signs reviewed: Yes - General General: Alert and oriented X 3, Well developed/nourished, Other (appears to be in mild-moderate painful distress) - HEENT HEENT: Moist mucous membranes - Cardiac Cardiac: RRR - Respiratory Respiratory: No respiratory distress, Clear bilaterally - Abdomen Abdomen: Soft - Derm Derm: Normal color, Warm and dry - Extremities Extremities: No edema - Neuro Neuro: Alert and oriented X 3 PD ED PE EXPANDED - Abdomen Abdomen: Decreased BS (few bowel sounds and those presents are high-pitched), Distended, Tender to palpation (mild-moderate TTP diffusely without guarding or rebound) Results - Vitals Vitals: Vital Signs - 24 hr 10/07/23 10/07/23 10/07/23 22:30 22:36 23:01 Temperature 36.4 C L Heart Rate 56 L 50 L 42 L Respiratory 18 20 Rate Blood Pressure 191/106 H 186/102 H O2 Saturation 98 98 If not protocol : Oxygen Flow, liters/minute 10/07/23 10/08/23 10/08/23 23:30 00:00 00:30 Temperature Heart Rate 60 98 50 L Respiratory 20 20 14 Rate Blood Pressure 205/104 H 193/99 H 158/89 H O2 Saturation 99 96 84 L If not protocol : Oxygen Flow, liters/minute 10/08/23 10/08/23 10/08/23 00:33 01:00 01:30 Temperature Heart Rate 45 L 50 L Respiratory 18 18 Rate Blood Pressure 180/103 H 200/101 H O2 Saturation 96 97 98 If not protocol 3 3 3 : Oxygen Flow, liters/minute 10/08/23 10/08/23 10/08/23 02:00 02:30 03:00 Temperature Heart Rate 58 L 59 L 57 L Respiratory 16 16 18 Rate Blood Pressure 209/115 H 195/110 H 177/98 H O2 Saturation 98 94 97 If not protocol 1 : Oxygen Flow, liters/minute 10/08/23 10/08/23 10/08/23 03:50 03:57 04:00 Temperature Heart Rate 56 L 57 L 55 L Respiratory 18 18 18 Rate Blood Pressure 219/98 H 179/96 H 152/92 H O2 Saturation 98 94 95 If not protocol 2 2 2 : Oxygen Flow, liters/minute 10/08/23 10/08/23 10/08/23 04:17 04:30 04:46 Temperature Heart Rate 66 61 64 Respiratory 18 18 18 Rate Blood Pressure 141/90 H 131/74 H 134/77 H O2 Saturation 94 92 95 If not protocol 2 2 2 : Oxygen Flow, liters/minute 10/08/23 10/08/23 10/08/23 05:00 05:30 05:57 Temperature Heart Rate 65 62 68 Respiratory 18 18 18 Rate Blood Pressure 120/68 118/79 123/74 O2 Saturation 92 92 94 If not protocol 2 2 2 : Oxygen Flow, liters/minute 10/08/23 10/08/23 10/08/23 06:00 06:30 07:00 Temperature Heart Rate 69 67 62 Respiratory 18 16 16 Rate Blood Pressure 129/72 112/70 107/67 O2 Saturation 94 92 95 If not protocol 2 3 3 : Oxygen Flow, liters/minute 10/08/23 10/08/23 10/08/23 07:30 08:00 08:30 Temperature Heart Rate 62 62 62 Respiratory 18 18 16 Rate Blood Pressure 113/60 110/62 116/70 O2 Saturation 93 93 93 If not protocol 3 5 : Oxygen Flow, liters/minute 10/08/23 09:00 Temperature Heart Rate 65 Respiratory 15 Rate Blood Pressure 116/69 O2 Saturation 93 If not protocol 5 : Oxygen Flow, liters/minute Oxygen O2 Source Nasal cannula - EKG (time done) No standard instances EKG releavant findings:: EKG personally interpreted by author of this note. Relevant findings are: Rate: Rate (enter#) (58) Rhythm: NSR [place]: LAD Intervals: Prolonged [place], Prolonged QT Ischemia: Normal ST segments, Q waves (III, aVF) - Labs Labs: Laboratory Tests 10/07/23 10/07/23 10/08/23 22:30 22:30 00:14 WBC 8.8 RBC 4.25 L Hgb 14.1 Hct 43.6 MCV 102.6 H MCH 33.2 H MCHC 32.3 RDW 13.6 Plt Count 156 MPV 10.5 Neut # (Auto) 6.3 Lymph # (Auto) 1.8 [place] # (Auto) 0.6 Eos # (Auto) 0.1 Baso # (Auto) 0.0 Absolute Nucleated RBC 0.00 Nucleated RBC % 0.0 Sodium 140 Potassium 3.7 Chloride 106 Carbon Dioxide 27 Anion Gap 7.0 BUN 23 H Creatinine 1.2 Estimated GFR (MDRD) 57 L Glucose 171 H Lactic Acid Calcium 9.5 Total Bilirubin 0.9 AST 17 ALT 9 L Alkaline Phosphatase 84 Total Protein 6.9 Albumin 4.4 Globulin 2.5 Albumin/Globulin Ratio 1.8 Lipase 34 Urine Color YELLOW Urine Clarity CLEAR Urine pH 7.5 Ur Specific [place] 1.020 Urine Protein NEGATIVE Urine Glucose (UA) 100 H Urine Ketones NEGATIVE Urine Occult Blood TRACE-INTA Urine Nitrite NEGATIVE Urine Bilirubin NEGATIVE Urine Urobilinogen 0.2 (NORMAL) Ur Leukocyte Esterase NEGATIVE Ur Microscopic Review NOT INDICATED Urine Culture Comments NOT INDICATED 10/08/23 03:19 WBC RBC Hgb Hct MCV MCH MCHC RDW Plt Count MPV Neut # (Auto) Lymph # (Auto) [place] # (Auto) Eos # (Auto) Baso # (Auto) Absolute Nucleated RBC Nucleated RBC % Sodium Potassium Chloride Carbon Dioxide Anion Gap BUN Creatinine Estimated GFR (MDRD) Glucose Lactic Acid 1.2 Calcium Total Bilirubin AST ALT Alkaline Phosphatase Total Protein Albumin Globulin Albumin/Globulin Ratio Lipase Urine Color Urine Clarity Urine pH Ur Specific [place] Urine Protein Urine Glucose (UA) Urine Ketones Urine Occult Blood Urine Nitrite Urine Bilirubin Urine Urobilinogen Ur Leukocyte Esterase Ur Microscopic Review Urine Culture Comments - Rads (name of study) CT A/P with IV and PO contrast Relevant Findings:: Prelim report reviewed, See rad report CTA chest Relevant Findings:: Prelim report reviewed, See rad report PD Medical Decision Making - ED course Complexity details: reviewed results, re-evaluated patient, considered differential, d/w patient ED course: Initial presentation was suggestive of small bowel obstruction, and thus the CT of the abdomen pelvis was performed with both IV and oral contrast. 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 The dissection also continues into the superior mesenteric artery. There was no evidence of vascular compromise on exam and his pain was well-controlled with 1 mg IV Dilaudid; later in his stay he did require occasional doses of morphine for pain control. Patient's heart rate is in the 50s to lower 60s even prior to any intervention, and thus he is not given any beta-val nor beta blocking medication. However, his blood pressures are a significantly elevated early in his stay and thus, upon receiving the CT reading, a nicardipine drip is initiated. This is titrated up until adequate blood pressure control is achieved (SBP 100-120). I discussed this case with Dr. Shannon (on-call vascular surgeon for [facility]). He feels this case is more complicated than would be appropriate for [facility] and recommends [facility]. for transfer. I discussed this case with Dr. Eric Dorado (on-call vascular surgeon for [facility]); he says this type B dissection only requires medical management at this time and thus can be admitted to [facility] with understanding that transfer can be reconsidered should he evidence deterioration such as intractable pain, worsening lactate, worsening creatinine, or clinical evidence of hypoperfusion such as pulse deficit/color changes in lower extremities. I then discussed this case with Dr. Lindquist, hospitalist at [facility]; he does not feel comfortable admitting this case to [facility]. We have repaged vascular surgeon at [facility] but have not heard back well past the end of my shift and thus care is turned over to oncoming ED physician (Dr. Nelson). ADDENDUM: At approximately 09:35, I heard back from Dr. Dorado. I explained that our hospitalist is not comfortable accepting this patient given this is a critical access hospital and he again reiterates the management is medical and he does not accept transfer to [facility]. I then again discussed this with [facility] hospitalist and he reiterates he does not feel comfortable accepting. Departure - Departure Disposition: 02 Transfer Acute Care Hosp Clinical Impression: Aortic dissection, thoracoabdominal Condition: Serious Forms: PCP List
[2023-10-08] MEDS: HYDROmorphone 1 MG/ML CARPUJECT IVP STA (00:11)
[2023-10-08 00:26] LABS: BILIRUBIN,URINE NEGATIVE (NEGATIVE); GLUCOSE, URINE (UA) 100 mg/dL (NEGATIVE); KETONES,URINE (UA) NEGATIVE (NEGATIVE); LEUKOCYTE ESTERASE, URINE NEGATIVE (NEGATIVE); NITRITE,URINE NEGATIVE (NEGATIVE); OCCULT BLOOD,URINE TRACE-INTA (NEGATIVE); PH,URINE 7.5 PH (5.0-7.5); PROTEIN,URINE NEGATIVE (NEGATIVE); UROBILINOGEN,URINE 0.2 (NORMAL) E.U./dL (NORMAL)
[2023-10-08 00:29] LABS: CLARITY,URINE CLEAR (CLEAR)
[2023-10-08] MEDS ORDERED: iohexoL-300 100 ML VIAL ONE ×2 (00:42→05:30)
[2023-10-08] MEDS ORDERED: DIATRIZOATE MEGLU/DIATRIZO SOD 30 ML BOTTLE PO ONE (00:44)
[2023-10-08] MEDS: iohexoL-300 100 ML VIAL IVP ONE (02:33)
[2023-10-08] MEDS: DIATRIZOATE MEGLU/DIATRIZO SOD 30 ML BOTTLE PO ONE (02:34)
[2023-10-08] MEDS ORDERED: DEXTROSE 5% 250 ML IV ONE (03:22)
[2023-10-08] MEDS ORDERED: NICARDIPINE HCL 25 MG/10 ML VIAL IV ONE ×2 (03:38→05:15)
[2023-10-08] MEDS: NICARDIPINE HCL 25 MG in SODIUM CHLORIDE 0.9% 240 ML IV STA ×2 (03:44→06:02)
[2023-10-08] MEDS: MORPHINE 2 MG/ML CARPUJECT IVP STA ×3 (05:16→12:46)
--- NOTE | 2023-10-08 07:21 | CT Report ---
PROCEDURE: Angio Chest INDICATIONS: type A vs type B dissection CONTRAST: 100 ml omni 300 TECHNIQUE: After the administration of intravenous contrast, 2 mm axial images were acquired from the pulmonary apices to the posterior costophrenic angles during the arterial phase. In addition, 1 mm lung kernel and 5 mm soft tissue kernel reconstructions were performed. 3-dimensional coronal oblique maximum int ensity projection (MIP) reformats, 8 mm axial MIP, and 5 mm coronal and sagittal MPR reformats were t hen performed through the thorax. For radiation dose reduction, the following was used: automated exp osure control, adjustment of mA and/or kV according to patient size. COMPARISON: Correlation is made with the accompanying imaging. Prior chest CT, 12/29/2022. FINDINGS: Image quality: Excellent. Large vessels: There is an aortic dissection seen, which begins within the distal descending thoracic aorta, nearly at the level of the diaphragm. The more proximal thoracic aorta is tortuous and demons trates overall wall thickening. There is a perforation seen into the wall of the aorta within the distal aortic arch, as seen on seri es 14 image 71. No filling defects within the opacified pulmonary arteries, accounting for motion and contrast timing . Lungs and pleura: Mild dependent edema and atelectasis can be seen. No consolidation. No pleural effu sions. No pneumothorax. No suspicious pulmonary nodules which require follow up. Mediastinum: Heart size is moderately enlarged No pericardial effusion. No large vessel abnormality. No mediastinal adenopathy by size criteria. Chest wall and lower neck: Thyroid is unremarkable. No axillary or supraclavicular adenopathy by size . Bones: No aggressive osseous abnormality. Age-appropriate degenerative changes are seen. There is a ccentuated thoracic kyphosis. Upper Abdomen: Unremarkable. IMPRESSION: This patient has a Alan type B dissection, with the dissection beginning within the inferior port ion of the descending thoracic aorta, nearly at the level of the diaphragm. The thoracic aorta is prominent and demonstrates areas of wall thickening, which is likely related to hemorrhage within the wall of the aorta itself. Its wall thickening is new compared to the 01/06/2023 examination. Within the distal aortic arch, there is a focal perforation seen into the wall of the aorta itself. T here is active passage of contrast from the lumen of the aorta into the wall of the aorta at this sit e. Additional findings: Moderate cardiomegaly Note: Case discussed by telephone with Dr. Stubbs at 7:18 AM [place] time on 09/30/2023. Reviewed by: Yousif Villanueva MD on 10/08/2023 6:20 AM [facility] Approved by: Yousif Villanueva MD on 10/08/2023 6:20 AM [facility] Station ID: [id number]
--- NOTE | 2023-10-08 07:28 | CT Report ---
PROCEDURE: Abdomen/Pelvis W INDICATIONS: abd. pain CONTRAST: 100 ml omni 300 TECHNIQUE: Oral contrast was given. After the administration of intravenous contrast, a CT scan of the abdomen a nd pelvis was performed. Images were recorded and evaluated at appropriate window settings. Reformats : coronal and sagittal. For radiation dose reduction, the following was used: automated exposure cont rol, adjustment of mA and/or kV according to patient size. COMPARISON: Correlation is made with the accompanying imaging. 12/29/2022 FINDINGS: Image quality: Diagnostic. Lower chest: Unremarkable. Liver: No solid mass. The liver is prominent in size. Diffuse fatty liver infiltration can be seen. Gallbladder and biliary tree: Gallstones are seen within the gallbladder. No additional CT findings o f cholecystitis are seen. Spleen: No splenomegaly. Pancreas: No pancreatic ductal dilation. Adrenals: No adrenal nodule. Kidneys and ureters: No hydronephrosis. No renal cystic lesion which requires follow up. No solid mas s. Stomach, bowel and peritoneum: No bowel distension. No pathologic free fluid. A gastric tube is seen, with the tip not visible within the [id number] of this image, although clearly below the diaphrag m. A [employer] shunt catheter can be seen. Diverticulosis can be seen, without mildred findings of active diverticulitis. Lymph nodes: No central or retroperitoneal adenopathy. Vessels: There is an aortic dissection seen within the distal aspect of the thoracic aorta and contin uing through the abdominal aorta to the level of the aortic bifurcation. There is abnormal wall thick ening seen of the thoracic aorta. The proximal aorta measures 3.5 cm AP. The celiac axis is patent f rom the true lumen. The superior mesenteric artery demonstrates a dissection flap along its course. T he left renal artery is fed from the true lumen and the right renal artery stent from the false lumen . The inferior mesenteric arteries fill from the true lumen. PELVIS Reproductive organs: Prostate seed implants can be seen. Bladder: No abnormal wall thickening, accounting for underdistention. Pelvic lymph nodes: No pelvic adenopathy by size criteria. Bones: No aggressive osseous abnormality. Moderate to prominent lumbar spine degenerative change can be seen. Other: Bilateral fat-containing inguinal hernias are seen. IMPRESSION: There is an aortic dissection seen, visualized within the lower thoracic aorta and continuing through to the aortic bifurcation. Organs are fed from both the false lumen and the true lumen. A dissection flap is seen through the superior mesenteric artery. Additional findings: Enlarged, fatty liver Layering gallstones [employer] shunt catheter Diverticulosis, without findings of active diverticulitis. Prostate seed implants Bilateral fat-containing inguinal hernias. Note: No significant discrepancy from the preliminary report. Reviewed by: Yousif Villanueva MD on 10/08/2023 6:27 AM [facility] Approved by: Yousif Villanueva MD on 10/08/2023 6:27 AM [facility] Station ID: [id number]
[2023-10-08] MEDS: NICARDIPINE HCL 25 MG in SODIUM CHLORIDE 0.9% 240 ML IV SCH ×2 (07:57→13:30)
[2023-10-08] MEDS: ONDANSETRON 4 MG/2 ML VIAL IVP STA (08:11)
[2023-10-08] MEDS: amLODIPine 5 MG TABLET PO STA (12:55)
[2023-10-08] MEDS: METOPROLOL SUCCINATE 25 MG TABLET PO SCH (12:55)
[2023-10-08 15:07] VITALS: BP 117/73; O2SAT 93
[2023-10-09] MEDS ORDERED: amLODIPine 5 MG TABLET PO SCH (09:00)
== END 2023-10-08 15:21 | disposition short-term general hospital (02) ==
LOC: EDUNIT# → ED 22:21
DX: I71.012 Dissection of descending thoracic aorta (principal); I10 Essential (primary) hypertension
CPT/HCPCS: 36415; 71275; 74177; 80053; 81003; 83605; 83690; 85025; 93005; 96365; 96366; 96368; 96375; 96376; 99285; A9270; J1170; Q9963; Q9967; 81001; 87086

== ENCOUNTER 2024-02-19 13:29 | Outpatient (CLI) | payer MEDICARE, BC ==
[2024-02-19 13:54] LABS: CALCIUM 9.4 mg/dL (8.5-10.3); CREATININE 1.3 mg/dL (0.6-1.3); POTASSIUM 4.2 mmol/L (3.5-4.5)
== END 2024-02-19 13:30 | disposition home or self-care (01) ==
LOC: LAB 13:29
PROVIDERS: ATTEND Internal Medicine Cardiovascular Disease
DX: I48.19 Other persistent atrial fibrillation (principal)
CPT/HCPCS: 36415; 80048